=== PATIENT | female | born 1945 | race Caucasian/White ===

== ENCOUNTER 2019-04-17 18:05 | Emergency (ER) | payer MEDICARE, OTHER, SELFPAY ==
[2019-04-17 18:44] VITALS: BP 167/84; PULSE 100; RESP 20; TEMP 37.5; O2SAT 99; BMI 30.2
[2019-04-17 19:33] LABS: Basophils % 0.3 %; Hematocrit 47.7 % (37.0-47.0); Hemoglobin 15.5 g/dL (11.5-15.3); Lymphocytes # 1.1 10^3/uL (0.8-4.8); Lymphocytes % 15.3 %; Mean Corpuscular HGB Conc 32.5 g/dL (30.0-36.0); Mean Corpuscular Volume 92.3 fL (81-99); Mean Platelet Volume 9.1 fL (7.4-10.4); Monocytes # 0.4 10^3/uL (0.2-0.9); Monocytes % 5.4 %; Neutrophils # 5.7 10^3/uL (1.8-7.7); Neutrophils % 78.6 %; Nucleated Red Blood Cells % 0 %; Platelet Count 328 10^3/cmm (130-400); Red Blood Count 5.17 10^6/uL (4.1-5.3); Red Cell Distribution Width 12.9 % (12.1-15.1); White Blood Count 7.2 10^3/uL (4.0-10.0)
[2019-04-17 19:48] LABS: Alanine Aminotransferase 84 U/L (0-33); Albumin Level 4.7 g/dL (3.5-5.2); Alkaline Phosphatase 132 IU/L (35-105); Aspartate Amino Transferase 37 U/L (0-32); Blood Urea Nitrogen 19 mg/dL (8-23); Calcium 9.9 mg/dL (8.5-10.5); Carbon Dioxide 25 mmol/L (22-29); Chloride 98 mmol/L (98-107); Globulin 3.1 g/dL (1.3-4.6); Glucose 147 mg/dL (65-115); Lipase 18 U/L (13-60); Sodium 137 mmol/L (136-145); Total Bilirubin 0.3 mg/dL (0.15-1.2); Total Protein 7.8 g/dL (6.6-8.7)
--- NOTE | 2019-04-17 20:24 | ECG_ITS ---
Measurements Intervals Floyd Rate: 82 P: 46 OR: 244 QRS: 61 QRSD: 84 T: 73 QT: 362 QTc: 423 SINUS RHYTHM WITH FIRST DEGREE AV BLOCK NONSPECIFIC T-WAVE ABNORMALITY No previous ECG available for comparison Electronically Signed On 04-18-2019 13:21:40 COAL GETTER by Kathy Cadena M.D. [email or web address]
--- NOTE | 2019-04-17 20:31 | ED_ITS ---
HPI - General Adult General: Chief complaint: General Medical Stated complaint: Nausea, Vomiting, Migraine, Dizzy Time Seen by Provider: 04/17/19 20:23 History of Present Illness: HPI narrative: Patient comes in today with 3-day history of body aches and malaise. Patient reports for the last 24 hours she started vomiting and becoming significantly dizzy. Patient is unable to move without vomiting. Patient appears unwell. Patient appears in no pain. Patient reported that she had some low back and sciatic type pain prior to the symptoms occurring also. Patient takes thyroid medication and medication for cholesterol. Patient does have a history of 1 cardiac stent placement. Associated symptoms: Reports headache(s), nausea and vomiting Review of Systems General: Reports: 10 or more systems reviewed and unremarkable except in HPI and below GI: Reports: abdominal pain, nausea and vomiting Neuro: Reports: headache and dizziness PFSH ED PFSH: Social History Smoking and tobacco status: never smoked Physical Exam Const: COMMON NORMALS: no apparent distress and oriented x3 GENERAL APPEARANCE: cooperative HENMT: COMMON NORMALS: normocephalic, external ears normal, EAC's normal, TM's normal bilaterally and external nose normal HEAD & SCALP: normal to inspection and normocephalic FACE & SINUS: normal facial exam NOSE: external nose normal GENERAL EAR: hearing not grossly impaired EXTERNAL EAR: Yes external ears normal EXTERNAL AUDITORY CANAL: EAC's normal TYMPANIC MEMBRANE: TM's normal bilaterally MOUTH: oral and palatal mucosa normal THROAT: posterior oropharynx normal Eye: COMMON NORMALS: PERRL and EOMs intact bilaterally PUPIL: Yes PERRL Neck/C-Spine: COMMON NORMALS: full ROM and no lymphadenopathy Lymph: LYMPHATIC: no lymphedema noted Chest: COMMONS NORMALS: inspection of chest normal and palpation of chest normal Resp: COMMON NORMALS: normal respiratory effort and clear to auscultation bilaterally AUSCULTATION: clear to auscultation bilaterally Cardio: COMMON NORMALS: regular rate and regular rhythm RATE: regular rate RHYTHM: regular rhythm GI: COMMON NORMALS: normal to inspection, nondistended, normoactive bowel sounds and soft to palpation AUSCULTATION: Yes normoactive bowel sounds PALPATION: Yes soft and Yes tender (right abd) : COMMON NORMALS: Yes no CVA tenderness BLADDER/KIDNEY EXAM: Yes no CVA tenderness Back/Pelvis: COMMON NORMALS: no CVA tenderness and thoracic and lumbar spine normal to inspection Extremity: COMMON NORMALS: normal to inspection GENERAL: No edema Neuro: COMMON NORMALS: oriented x3, moves all extremities and no focal motor deficits Psych: COMMON NORMALS: mental status grossly normal and cooperative Skin: COMMON NORMALS: no rashes or lesions noted GENERAL SKIN EXAM: no rashes or lesions noted Course Vital Signs: Vital signs: Vital Signs Temperature 99.5 F 04/17/19 18:44 Pulse Rate 98 04/17/19 22:50 Respiratory Rate 20 H 04/17/19 18:44 Blood Pressure 134/71 04/17/19 22:50 Pulse Oximetry 99 04/17/19 18:44 MDM - General Adult MDM Narrative: Medical decision making narrative: Patient comes in today with complaints of headache, nausea and vomiting for the last 24 hours. Patient also reported some malaise for the last 3 days. Exam notes abdomen is soft with some mild tenderness in the epigastric region. Bowel sounds are hyperactive. Skin is warm and dry color is pink. Differential diagnosis includes gastroenteritis, gastritis, pneumonia, influenza, cholecystitis, dehydration, migraine headache, intracranial bleeding, ACS. Troponin was negative. CT of the head was normal. Laboratory values noted some mild elevation in hemoglobin hematocrit and mild elevation in AST, ALT, and alkaline phosphatase. CT of the abdomen showed no acute problem. Feel the patient probably has gastroenteritis with some mild dehydration. Patient was given 1500 mL of fluid in the ER along with Zofran, Reglan, Benadryl, and ketorolac for symptoms. Patient had improvement overall significantly. Patient was able to move without nausea and vomiting. Lab Data: Labs: Lab Results 04/17/19 04/17/19 04/17/19 Range/Units 19:21 19:21 19:21 WBC 7.2 (4.0-10.0) 10^3/ uL RBC 5.17 (4.1-5.3) 10^6/u L Hgb 15.5 H (11.5-15.3) g/dL Hct 47.7 H (37.0-47.0) % MCV 92.3 (81-99) fL MCH 30.0 (28.0-34.0) pg MCHC 32.5 (30.0-36.0) g/dL RDW 12.9 (12.1-15.1) % Plt Count 328 (130-400) 10^3/c mm MPV 9.1 (7.4-10.4) fL Neut % (Auto) 78.6 % Lymph % (Auto) 15.3 % [place] % (Auto) 5.4 % Eos % (Auto) 0.0 % Baso % (Auto) 0.3 % Neut # (Auto) 5.7 (1.8-7.7) 10^3/u L Lymph # (Auto) 1.1 (0.8-4.8) 10^3/u L [place] # (Auto) 0.4 (0.2-0.9) 10^3/u L Eos # (Auto) 0.0 (0.0-0.8) 10^3/u L Baso # (Auto) 0.0 (0.0-0.1) 10^3/u L Nucleated RBC % (a uto) 0 % Nucleated RBCs # 0.0 /100WBC Sodium 137 (136-145) mmol/L Potassium 4.0 (3.5-5.1) mmol/L Chloride 98 (98-107) mmol/L Carbon Dioxide 25 (22-29) mmol/L Anion Gap 18.0 (5-19) BUN 19 (8-23) mg/dL Creatinine 0.8 (0.5-0.9) mg/dL Glucose 147 H (65-115) mg/dL Lactic Acid (0.5-2.2) mmol/L Calcium 9.9 (8.5-10.5) mg/dL Total Bilirubin 0.3 (0.15-1.2) mg/dL AST 37 H (0-32) U/L ALT 84 H (0-33) U/L Alkaline Phosphata se 132 H (35-105) IU/L Troponin T Baselin e 6 (0-10) ng/mL Total Protein 7.8 (6.6-8.7) g/dL Albumin 4.7 (3.5-5.2) g/dL Globulin 3.1 (1.3-4.6) g/dL Lipase 18 (13-60) U/L Urine Color (Yellow) Urine Appearance (CLEAR) Urine pH (5-7) Ur Specific Gravit y (1.005-1.030) Urine Protein (Negative) Urine Glucose (UA) (Normal) Urine Ketones (Negative) Urine Blood (Negative) Urine Nitrate (Negative) Urine Bilirubin (NEGATIVE) Urine Urobilinogen (Negative) mg/dL Ur Leukocyte Joanie ase (Negative) Urine RBC (0-2) /hpf Urine WBC (0-5) /hpf Ur Squamous Epith Cells (0-5) Urine Bacteria (NONE) Urine Mucus 04/17/19 04/17/19 Range/Units 19:21 21:46 WBC (4.0-10.0) 10^3/ uL RBC (4.1-5.3) 10^6/u L Hgb (11.5-15.3) g/dL Hct (37.0-47.0) % MCV (81-99) fL MCH (28.0-34.0) pg MCHC (30.0-36.0) g/dL RDW (12.1-15.1) % Plt Count (130-400) 10^3/c mm MPV (7.4-10.4) fL Neut % (Auto) % Lymph % (Auto) % [place] % (Auto) % Eos % (Auto) % Baso % (Auto) % Neut # (Auto) (1.8-7.7) 10^3/u L Lymph # (Auto) (0.8-4.8) 10^3/u L [place] # (Auto) (0.2-0.9) 10^3/u L Eos # (Auto) (0.0-0.8) 10^3/u L Baso # (Auto) (0.0-0.1) 10^3/u L Nucleated RBC % (a uto) % Nucleated RBCs # /100WBC Sodium (136-145) mmol/L Potassium (3.5-5.1) mmol/L Chloride (98-107) mmol/L Carbon Dioxide (22-29) mmol/L Anion Gap (5-19) BUN (8-23) mg/dL Creatinine (0.5-0.9) mg/dL Glucose (65-115) mg/dL Lactic Acid 0.2 L (0.5-2.2) mmol/L Calcium (8.5-10.5) mg/dL Total Bilirubin (0.15-1.2) mg/dL AST (0-32) U/L ALT (0-33) U/L Alkaline Phosphata se (35-105) IU/L Troponin T Baselin e (0-10) ng/mL Total Protein (6.6-8.7) g/dL Albumin (3.5-5.2) g/dL Globulin (1.3-4.6) g/dL Lipase (13-60) U/L Urine Color Yellow (Yellow) Urine Appearance Hazy A (CLEAR) Urine pH 6 (5-7) Ur Specific Gravit y 1.020 (1.005-1.030) Urine Protein Neg (Negative) Urine Glucose (UA) Norm (Normal) Urine Ketones 1+ H (Negative) Urine Blood 3+ H (Negative) Urine Nitrate Negative (Negative) Urine Bilirubin Neg (NEGATIVE) Urine Urobilinogen Norm (Negative) mg/dL Ur Leukocyte Joanie ase Negative (Negative) Urine RBC 80-100 H (0-2) /hpf Urine WBC None (0-5) /hpf Ur Squamous Epith Cells 5-10 H (0-5) Urine Bacteria 1+ H (NONE) Urine Mucus 1+ Discharge Plan Discharge Patient Disposition: Home, Self-Care Clinical Impression: Gastroenteritis Condition: Stable Prescriptions: New meclizine 25 mg tablet 25 mg PO TID PRN (Reason: dizziness, nausea/vomiting) Qty: 14 RF: 0 ondansetron 4 mg tablet,disintegrating 4 mg PO Q8H PRN (Reason: nausea and vomiting) Qty: 10 RF: 0 Discharge Orders: Discharge Order (Routine); Ordered 04/17/19 Ordered By: Joe Herzog Referrals: Lauern Carrasco MD [Primary Care Provider] - Patient Instructions: Gastroenteritis (ED) Activity Restrictions/Additional Instructions: Drink plenty of fluids Clear liquids for 24 hours, then increase slowly to a bland diet Continue to normal diet slowly Follow-up with primary care in three days Return to ER for worsening symptoms, or blood in stool or vomit Coding Level of Care Code ED Wood Veneer Taper for Chg Fwd Exam Comprehensive
--- NOTE | 2019-04-17 20:31 | CTR_ITS ---
PROCEDURE INFORMATION: Exam: CT Abdomen And Pelvis With Contrast Exam date and time: 04/17/2019 9:35 PM Age: 73 years old Clinical indication: Nausea and vomiting; Prior surgery; Surgery date: 6+ months; Surgery type: Colon resection; Additional info: N/v abd pain TECHNIQUE: Imaging protocol: Computed tomography of the abdomen and pelvis with intravenous contrast. Total DLP: 1015.7 mGy-cm Radiation optimization: All CT scans at this facility use at least one of these dose optimization techniques: automated exposure control; mA and/or kV adjustment per patient size (includes targeted exams where dose is matched to clinical indication); or iterative reconstruction. Contrast material: OMNI 300; Contrast volume: 95 ml; Contrast route: IV; COMPARISON: [place]dom[place] o [id number] 01/29/2015 3:[address] Abdomen/Pelvis [facility] [address] 04/07/2011 9:35:21 AM FINDINGS: Pleural space: There is calcified granuloma in the left lower lobe and there is some calcified pleural plaques which do not appear to be grossly changed compared with 01/29/2015. Liver: Liver shows diffusely decreased density in keeping with fatty change. There is no focal abnormality within the liver. Gallbladder and bile ducts: The gallbladder is normal. Pancreas: The pancreas is normal. Spleen: The spleen is normal. Adrenals: The adrenal glands are normal. Kidneys and ureters: There is a 2 cm sized benign-appearing simple cyst in the mid left kidney which is slightly larger than on 01/29/2015 when it measured 18 mm. Tiny cyst in the upper pole right kidney is not significantly changed. There is no evidence of hydronephrosis. There is no evidence of renal or ureteral calcifications. Stomach and bowel: There is no evidence of colitis/diverticulitis. There is no evidence of intestinal obstruction. Appendix: Not identifiedThere is no evidence of colitis/diverticulitis. Intraperitoneal space: Unremarkable. No free air. No significant fluid collection. Vasculature: Unremarkable. No abdominal aortic aneurysm. Lymph nodes: There are some calcified left periesophageal lymph nodes in keeping with old granulomatous disease. Bladder: Unremarkable as visualized. Reproductive: Unremarkable as visualized. Bones/joints: The lumbar spine demonstrates mild degenerative changes at multiple levels. Soft tissues: Unremarkable. Other findings: There is no evidence of focal fluid collections to suggest abscess formation. CT/CT abdomen pelvis w con* [id number] IMPRESSION: No acute findings and no significant change from 01/29/2015 COMMENTS: Consistent with the [employer]'s Incidental Findings Committee white paper (J Am Emmett Radiol 2018): Any incidental cystic renal lesion classified in this report as too small to characterize or simple appearing is likely a benign cyst. No follow-up imaging is recommended for these lesions per consensus recommendations based on imaging criteria. Radiation Dose CTDIVOL = (mGy): DLP = 1015.7 (mGy-cm)
--- NOTE | 2019-04-17 20:34 | CTR_ITS ---
PROCEDURE INFORMATION: Exam: CT Head Without Contrast Exam date and time: 04/17/2019 9:35 PM Age: 73 years old Clinical indication: Pain; Headache not specified; Additional info: Dizzyness, headache TECHNIQUE: Imaging protocol: Computed tomography of the head without contrast. Total DLP: 780.66 mGy-cm Radiation optimization: All CT scans at this facility use at least one of these dose optimization techniques: automated exposure control; mA and/or kV adjustment per patient size (includes targeted exams where dose is matched to clinical indication); or iterative reconstruction. COMPARISON: No relevant prior studies available. FINDINGS: Brain: Normal. No hemorrhage. Unremarkable white matter. No mass effect. Midline shift: There is no shift of midline structures. Ventricles: Normal. No ventriculomegaly. Bones/joints: Unremarkable. No acute fracture. Sinuses: Visualized sinuses are unremarkable. No fluid levels. Mastoid air cells: Visualized mastoid air cells are well aerated. Soft tissues: Unremarkable. CT/CT head wo con* [id number] IMPRESSION: No acute intracranial abnormality. Radiation Dose CTDIVOL = (mGy): DLP = 780.66 (mGy-cm)
[2019-04-17 20:59] LABS: Lactic Sepsis W/Reflex 0.2 mmol/L (0.5-2.2)
[2019-04-17 21:01] LABS: Troponin(5th) Baseline 6 ng/mL (0-10)
[2019-04-17] MEDS: metoclopramide 5 mg/mL SDV 2 mL 10 MG IVP (21:25)
[2019-04-17] MEDS: sodium chloride 0.9% 1,000 ML 999 ML IV (21:25)
[2019-04-17] MEDS: diphenhydrAMINE 50 mg/mL SDV 1mL 25 MG IVP (21:25)
[2019-04-17] MEDS: ketorolac 30 mg/mL INJ 15 MG IVP (21:27)
[2019-04-17] MEDS: iohexol 300 mg/mL 100 mL Btl IV (21:37)
[2019-04-17 22:45] VITALS: BP 122/57; PULSE 84
[2019-04-17 22:47] VITALS: BP 137/76; PULSE 88
[2019-04-17 22:50] VITALS: BP 134/71; PULSE 98
[2019-04-17] MEDS: sodium chloride 0.9% 500 ML IV (23:13)
[2019-04-17] MEDS: ondansetron 2 mg/ML SDV 2 mL 4 MG IVP (23:13)
[2019-04-17 23:33] LABS: Add Urine Microscopic? YES; Bilirubin Urine Neg (NEGATIVE); Blood Urine 3+ (Negative); Glucose Urine UA Norm (Normal); Ketones Urine 1+ (Negative); Leukocyte Esterase Urine Negative (Negative); Nitrate Urine Negative (Negative); Protein Urine Neg (Negative); Urine Appearance Hazy (CLEAR); Urine Color Yellow (Yellow); Urobilinogen Urine Norm (Negative); pH Urine 6 (5-7)
[2019-04-17 23:35] LABS: Add Urine Culture? Yes; Bacteria Urine 1+; Mucus Urine 1+; RBC Urine 80-100 /hpf (0-2)
[2019-04-18] MEDS: ondansetron 4 MG Tablet PO (00:13)
== END 2019-04-18 00:25 | disposition home or self-care (01) ==
PROVIDERS: Emergency Medicine; Emergency Provider Nurse Practitioner Family; Family Provider Family Medicine; PCP Family Medicine
DX: K52.9 Noninfective gastroenteritis and colitis, unspecified (principal)
CPT/HCPCS: 36415; 70450; 74177; 80053; 81001; 83605; 83690; 84484; 85025; 87086; 93005; 96361; 96374; 96375; 96376; 99283; 99284; J1200; J1885; J2405; J2765; J7030; J7040; Q0162; Q9967

== ENCOUNTER 2019-04-21 17:49 | Emergency (ER) | payer MEDICARE, OTHER, SELFPAY ==
[2019-04-21 17:55] VITALS: BP 163/84; PULSE 101; RESP 20; TEMP 37.4; O2SAT 98; BMI 29.6
--- NOTE | 2019-04-21 18:14 | ED_ITS ---
Entered by Pilar Can, acting as scribe for CanJuanito DO Emiliano Apr 21, 2019 17:49 HPI - General Adult General: Chief complaint: General Medical Stated complaint: headache, back pain Time Seen by Provider: 04/21/19 18:14 Source: patient and RN notes reviewed Mode of arrival: ambulatory Limitations: no limitations History of Present Illness: HPI narrative: 73 yo female presents to ED with complaints of a headache that she has had for about a week. She was here on 04.17.2019 for the same problem. She states she is dizzy, her back and legs hurt. She said when it first started she couldn't move without throwing up. She said she is able to keep from vomiting. She said it feels like her nerves are bad on her head. She said she is able to see fine and her neck is slightly stiff. Her pain comes in waves and is located on the L side of her head. Her temperature is slightly elevated at 99.4. She said her scalp is very tender on her L episcopal and slightly tender on her R episcopal. She said she had diarrhea for almost a week and is now diarrhea free. It hurts her back to raise her legs. Her PCP is Lauren Agustin MD complaint: headache Onset (ago): week(s) (1) Location: head Radiation: back and extremity (lower) Severity: severe Quality: stabbing and aching Pain Consistency: constant Relieving factors: none Exacerbating factors: none Associated symptoms: Reports headache(s), nausea and vomiting; Deny chest pain, confusion, dyspnea, palpitations or syncope Treatments prior to arrival: none Review of Systems Const: Reports: fever and body aches; Denies: chills Eyes: Denies: change in vision, blurry vision or blind spots ENMT: Denies: throat pain or ear pain Card: Denies: chest pain, palpitations, edema or syncope Resp: Denies: shortness of breath or productive cough GI: Reports: nausea and vomiting : Denies: flank pain Neuro: Reports: headache, dizziness and vertigo; Denies: numbness in extremities, weakness in extremities, changes in sensation, confusion, behavioral changes or slurred speech PFS ED PFSH: Social History Smoking and tobacco status: never smoked Physical Exam Const: GENERAL APPEARANCE: well developed ORIENTATION/CONSCIOUSNESS: Yes oriented to person, Yes oriented to place and Yes oriented to time HENMT: COMMON NORMALS: normocephalic, external ears normal and external nose normal HEAD & SCALP: normocephalic, scalp tenderness and temporal artery tenderness left NOSE: external nose normal and no nasal discharge EXTERNAL EAR: Yes external ears normal MOUTH: tongue normal TEETH & GINGIVA: no abnormal tooth and associated gingiva THROAT: posterior oropharynx normal; no peritonsillar mass Eye: COMMON NORMALS: PERRL, EOMs intact bilaterally and conjunctivae normal EYELID: eyelids normal CONJUNCTIVA: Yes conjunctivae normal PUPIL: Yes PERRL Neck/C-Spine: GENERAL: No tracheal deviation CERVICAL SPINE: Yes cervical spine tenderness Chest: COMMONS NORMALS: inspection of chest normal CHEST: No tenderness Resp: COMMON NORMALS: clear to auscultation bilaterally EFFORT & INSPECTION: No tachypneic, No respiratory distress, No retractions, No uses accessory muscles and No tracheal deviation AUSCULTATION: clear to auscultation bilaterally, no rhonchi, no wheezes and lung sounds not diminished Cardio: COMMON NORMALS: regular rate and regular rhythm RATE: regular rate RHYTHM: regular rhythm HEART SOUNDS: no murmurs PERIPHERAL PULSES: radial pulses present GI: INSPECTION: No abdominal distension AUSCULTATION: No hyperactive bowel sounds and No hypoactive bowel sounds PALPATION: No guarding and No rigid PERCUSSION: no dullness to percussion and no tympanic to percussion Neuro: SENSORIUM/ORIENTATION: Yes oriented to person, Yes oriented to place and Yes oriented to time Psych: COMMON NORMALS: mental status grossly normal Skin: COMMON NORMALS: no rashes or lesions noted GENERAL SKIN EXAM: no rashes or lesions noted Course Vital Signs: Vital signs: Vital Signs Temperature 99.4 F 04/21/19 17:55 Pulse Rate 80 04/21/19 20:53 Respiratory Rate 16 04/21/19 20:14 Blood Pressure 145/81 04/21/19 20:53 Pulse Oximetry 96 04/21/19 20:53 MDM - General Adult MDM Narrative: Medical decision making narrative: 73-year-old female presents with severe headache, complaining of scalp pain. She has body aches, particular ly in her lower extremities, and backache. She has a low-grade temperature. She was seen 4 days ago for similar complaints. She notes that her vomiting has improved. Her dizziness is improved as well. Her white blood cell count is 8. Her electrolytes are normal. Her inflammatory markers are not elevated. This speaks against temporal arteritis. Her CT, a repeat, is still normal. Lumbar puncture to rule out encephalitis/meningitis was offered, and the patient declined. She will be treated for the headache with carbamazepine, as it seems to be a neuropathic type of pain, and pain medication. Close follow-up. The patient has a PCP appointment on Wednesday or Wednesday. Lab Data: Labs: Lab Results 04/21/19 04/21/19 04/21/19 Range/Units 18:50 18:50 18:50 WBC 8.0 (4.0-10.0) 10^3/ uL RBC 4.85 (4.1-5.3) 10^6/u L Hgb 14.1 (11.5-15.3) g/dL Hct 44.0 (37.0-47.0) % MCV 90.7 (81-99) fL MCH 29.1 (28.0-34.0) pg MCHC 32.0 (30.0-36.0) g/dL RDW 13.1 (12.1-15.1) % Plt Count 292 (130-400) 10^3/c mm MPV 9.2 (7.4-10.4) fL Neut % (Auto) 73.2 % Lymph % (Auto) 17.7 % [place] % (Auto) 7.7 % Eos % (Auto) 1.0 % Baso % (Auto) 0.2 % Neut # (Auto) 5.9 (1.8-7.7) 10^3/u L Lymph # (Auto) 1.4 (0.8-4.8) 10^3/u L [place] # (Auto) 0.6 (0.2-0.9) 10^3/u L Eos # (Auto) 0.1 (0.0-0.8) 10^3/u L Baso # (Auto) 0.0 (0.0-0.1) 10^3/u L Nucleated RBC % (a uto) 0 % Nucleated RBCs # 0.0 /100WBC ESR 18 H (0-15) mm/hr Sodium 140 (136-145) mmol/L Potassium 3.9 (3.5-5.1) mmol/L Chloride 100 (98-107) mmol/L Carbon Dioxide 28 (22-29) mmol/L Anion Gap 15.9 (5-19) BUN 14 (8-23) mg/dL Creatinine 1.0 H (0.5-0.9) mg/dL Glucose 125 H (65-115) mg/dL Lactate (0.5-2.2) mmol/L Calcium 9.5 (8.5-10.5) mg/dL Magnesium 2.3 (1.7-2.3) mg/dL Total Bilirubin 0.2 (0.15-1.2) mg/dL AST 29 (0-32) U/L ALT 54 H (0-33) U/L Alkaline Phosphata se 101 (35-105) IU/L Creatine Kinase 71 (26-192) U/L C-Reactive Protein 1.5 (0.0-4.9) mg/L Total Protein 7.3 (6.6-8.7) g/dL Albumin 4.0 (3.5-5.2) g/dL Globulin 3.3 (1.3-4.6) g/dL Urine Color (Yellow) Urine Appearance (CLEAR) Urine pH (5-7) Ur Specific Gravit y (1.005-1.030) Urine Protein (Negative) Urine Glucose (UA) (Normal) Urine Ketones (Negative) Urine Blood (Negative) Urine Nitrate (Negative) Urine Bilirubin (NEGATIVE) Urine Urobilinogen (Negative) mg/dL Ur Leukocyte Joanie ase (Negative) Urine RBC (0-2) /hpf Urine WBC (0-5) /hpf Ur Squamous Epith Cells (0-5) Urine Bacteria (NONE) Urine Mucus 04/21/19 04/21/19 Range/Units 18:50 19:55 WBC (4.0-10.0) 10^3/ uL RBC (4.1-5.3) 10^6/u L Hgb (11.5-15.3) g/dL Hct (37.0-47.0) % MCV (81-99) fL MCH (28.0-34.0) pg MCHC (30.0-36.0) g/dL RDW (12.1-15.1) % Plt Count (130-400) 10^3/c mm MPV (7.4-10.4) fL Neut % (Auto) % Lymph % (Auto) % [place] % (Auto) % Eos % (Auto) % Baso % (Auto) % Neut # (Auto) (1.8-7.7) 10^3/u L Lymph # (Auto) (0.8-4.8) 10^3/u L [place] # (Auto) (0.2-0.9) 10^3/u L Eos # (Auto) (0.0-0.8) 10^3/u L Baso # (Auto) (0.0-0.1) 10^3/u L Nucleated RBC % (a uto) % Nucleated RBCs # /100WBC ESR (0-15) mm/hr Sodium (136-145) mmol/L Potassium (3.5-5.1) mmol/L Chloride (98-107) mmol/L Carbon Dioxide (22-29) mmol/L Anion Gap (5-19) BUN (8-23) mg/dL Creatinine (0.5-0.9) mg/dL Glucose (65-115) mg/dL Lactate 0.7 (0.5-2.2) mmol/L Calcium (8.5-10.5) mg/dL Magnesium (1.7-2.3) mg/dL Total Bilirubin (0.15-1.2) mg/dL AST (0-32) U/L ALT (0-33) U/L Alkaline Phosphata se (35-105) IU/L Creatine Kinase (26-192) U/L C-Reactive Protein (0.0-4.9) mg/L Total Protein (6.6-8.7) g/dL Albumin (3.5-5.2) g/dL Globulin (1.3-4.6) g/dL Urine Color Yellow (Yellow) Urine Appearance Clear (CLEAR) Urine pH 7 (5-7) Ur Specific Gravit y 1.010 (1.005-1.030) Urine Protein Neg (Negative) Urine Glucose (UA) Norm (Normal) Urine Ketones Negative (Negative) Urine Blood 3+ H (Negative) Urine Nitrate Negative (Negative) Urine Bilirubin Neg (NEGATIVE) Urine Urobilinogen Norm (Negative) mg/dL Ur Leukocyte Joanie ase Negative (Negative) Urine RBC 5-10 H (0-2) /hpf Urine WBC None (0-5) /hpf Ur Squamous Epith Cells 0-4 H (0-5) Urine Bacteria Trace (NONE) Urine Mucus Trace Imaging Data^: CT Head: Radiologist's impression: [address] [place] [address] CT Scan Report Signed Patient: Maira Poe #: [id number] : 5Acct#:[id number] Age/Sex: 73 / FADM Date: 04/21/19 Loc: ERRoom/Bed: Attending Dr: Ordering Provider/Ordering MD: Juanito North DO Date of Service: 04/21/19 Procedure(s): CT head wo con* [id number] Accession Number(s): [id number] Report Number: [id number] PROCEDURE INFORMATION: Exam: CT Head Without Contrast Exam date and time: 04/21/2019 7:33 PM Age: 73 years old Clinical indication: Headache not specified; Patient HX: C/O CURRY, back pain w n/v x 1 week TECHNIQUE: Imaging protocol: Computed tomography of the head without contrast. Total DLP: 756.2 mGy-cm Radiation optimization: All CT scans at this facility use at least one of these dose optimization techniques: automated exposure control; mA and/or kV adjustment per patient size (includes targeted exams where dose is matched to clinical indication); or iterative reconstruction. COMPARISON: CT head wo con* [id number] 04/17/2019 9:43 PM FINDINGS: Brain: Unremarkable for age. No hemorrhage. Unremarkable white matter. No mass effect. Ventricles: Unremarkable for age. No ventriculomegaly. Bones/joints: Unremarkable. No acute fracture. Sinuses: Visualized sinuses are unremarkable. No fluid levels. Mastoid air cells: Visualized mastoid air cells are well aerated. Soft tissues: Unremarkable. CT/CT head wo con* [id number] IMPRESSION: No acute intracranial abnormality. Radiation Dose CTDIVOL = (mGy): DLP = 756.2 (mGy-cm) Dictated By:Christophe Fatima Signed By:Tessy Fatima Date/Time:04/21/192006 DD/ Discharge Plan Discharge Condition: Stable Prescriptions: No Action meclizine 25 mg tablet 25 mg PO TID PRN (Reason: dizziness, nausea/vomiting) Qty: 14 RF: 0 ondansetron 4 mg tablet,disintegrating 4 mg PO Q8H PRN (Reason: nausea and vomiting) Qty: 10 RF: 0 atorvastatin 20 mg tablet 20 mg PO DAILY RF: 0 aspirin 81 mg tablet,delayed release (DR/EC) 81 mg PO DAILY RF: 0 tramadol 50 mg Tablet 50 mg PO BID PRN (Reason: Pain) RF: 0 levothyroxine 112 mcg tablet 112 mcg PO DAILY RF: 0 cyclobenzaprine 5 mg tablet 5 mg PO PRN PRN (Reason: MUSCLE SPASMS) RF: 0 Restasis 0.05 % Dropperette 1 drp OPHTHALMIC (EYE) Q12H RF: 0 Referrals: Lauren Carrasco MD [Primary Care Provider] - Coding Level of Care Code ED Mooner for Chg Fwd Exam Comprehensive The documentation recorded by the Juan José heart Valerie R, accurately reflects the service I personally performed and the decisions made by Can abrams Jeremy John, DO Apr 21, 2019 17:49
--- NOTE | 2019-04-21 18:30 | PC.PHAR ---
PT STATES THAT SHE IS CURRENTLY ON AN ANTIBIOTIC FOR A BLADDER INFECTION. SHE KNOWS NEITHER THE STRENGTH NOR THE NAME OF IT. HER PHARMACY, [email or web address] IN [place], IS CLOSED, SO I WAS UNABLE TO OBTAIN INFORMATION FROM THEM.
--- NOTE | 2019-04-21 18:40 | CTR_ITS ---
PROCEDURE INFORMATION: Exam: CT Head Without Contrast Exam date and time: 04/21/2019 7:33 PM Age: 73 years old Clinical indication: Headache not specified; Patient HX: C/O CURRY, back pain w n/v x 1 week TECHNIQUE: Imaging protocol: Computed tomography of the head without contrast. Total DLP: 756.2 mGy-cm Radiation optimization: All CT scans at this facility use at least one of these dose optimization techniques: automated exposure control; mA and/or kV adjustment per patient size (includes targeted exams where dose is matched to clinical indication); or iterative reconstruction. COMPARISON: CT head wo con* [id number] 04/17/2019 9:43 PM FINDINGS: Brain: Unremarkable for age. No hemorrhage. Unremarkable white matter. No mass effect. Ventricles: Unremarkable for age. No ventriculomegaly. Bones/joints: Unremarkable. No acute fracture. Sinuses: Visualized sinuses are unremarkable. No fluid levels. Mastoid air cells: Visualized mastoid air cells are well aerated. Soft tissues: Unremarkable. CT/CT head wo con* [id number] IMPRESSION: No acute intracranial abnormality. Radiation Dose CTDIVOL = (mGy): DLP = 756.2 (mGy-cm)
[2019-04-21 18:43] VITALS: O2SAT 98
[2019-04-21] MEDS: valproic acid inj 500 MG in sodium chloride 0.9% 50 ML 30 MG IV (19:00)
[2019-04-21] MEDS: sodium chloride 0.9% 1,000 ML 999 ML IV (19:00)
[2019-04-21 19:01] LABS: Basophils % 0.2 %; Eosinophils # 0.1 10^3/uL (0.0-0.8); Hemoglobin 14.1 g/dL (11.5-15.3); Lymphocytes # 1.4 10^3/uL (0.8-4.8); Lymphocytes % 17.7 %; Mean Corpuscular Hemoglobin 29.1 pg (28.0-34.0); Mean Corpuscular Volume 90.7 fL (81-99); Mean Platelet Volume 9.2 fL (7.4-10.4); Monocytes # 0.6 10^3/uL (0.2-0.9); Monocytes % 7.7 %; Neutrophils # 5.9 10^3/uL (1.8-7.7); Neutrophils % 73.2 %; Nucleated Red Blood Cells % 0 %; Platelet Count 292 10^3/cmm (130-400); Red Blood Count 4.85 10^6/uL (4.1-5.3); Red Cell Distribution Width 13.1 % (12.1-15.1)
[2019-04-21] MEDS: morphine 4 mg/mL SDV 1 mL IVP ×2 (19:01→20:38)
[2019-04-21] MEDS: ondansetron 2 mg/ML SDV 2 mL 4 MG IVP (19:01)
[2019-04-21] MEDS: ketorolac 30 mg/mL INJ IVP (19:01)
[2019-04-21 19:11] LABS: Lactate (Lactic Acid level) 0.7 mmol/L (0.5-2.2)
[2019-04-21 19:16] LABS: Alanine Aminotransferase 54 U/L (0-33); Alkaline Phosphatase 101 IU/L (35-105); Anion Gap 15.9 (5-19); Aspartate Amino Transferase 29 U/L (0-32); Blood Urea Nitrogen 14 mg/dL (8-23); C Reactive Protein 1.5 mg/L (0.0-4.9); Calcium 9.5 mg/dL (8.5-10.5); Carbon Dioxide 28 mmol/L (22-29); Chloride 100 mmol/L (98-107); Creatine Phosphokinase 71 U/L (26-192); Globulin 3.3 g/dL (1.3-4.6); Glucose 125 mg/dL (65-115); Magnesium 2.3 mg/dL (1.7-2.3); Potassium 3.9 mmol/L (3.5-5.1); Sodium 140 mmol/L (136-145); Total Bilirubin 0.2 mg/dL (0.15-1.2); Total Protein 7.3 g/dL (6.6-8.7)
[2019-04-21 19:47] LABS: Erythrocyte Sedimentation Rate 18 mm/hr (0-15)
[2019-04-21 19:57] VITALS: BP 152/77; PULSE 78; O2SAT 96
[2019-04-21 20:14] VITALS: BP 154/84; PULSE 81; RESP 16; O2SAT 96
[2019-04-21 20:35] LABS: Add Urine Culture? No; Add Urine Microscopic? YES; Bacteria Urine TRACE; Bilirubin Urine Neg (NEGATIVE); Blood Urine 3+ (Negative); Glucose Urine UA Norm (Normal); Ketones Urine Negative (Negative); Leukocyte Esterase Urine Negative (Negative); Mucus Urine TRACE; Nitrate Urine Negative (Negative); Protein Urine Neg (Negative); Squamous Epithelial Cell Urine 0-4 (0-5); Urine Appearance Clear (CLEAR); Urine Color Yellow (Yellow); Urobilinogen Urine Norm (Negative); pH Urine 7 (5-7)
[2019-04-21 20:53] VITALS: BP 145/81; PULSE 80; O2SAT 96
--- NOTE | 2019-04-21 21:17 | PC.NURSE ---
assisted pt to restroom. pt tolerated activity fair
[2019-04-21 21:37] VITALS: BP 143/74; PULSE 70; O2SAT 95
== END 2019-04-21 21:37 | disposition home or self-care (01) ==
PROVIDERS: Emergency Provider Emergency Medicine; Family Provider Family Medicine; PCP Family Medicine
DX: R51 Headache (principal); M54.9 Dorsalgia, unspecified
CPT/HCPCS: 12345; 70450; 80053; 81001; 82550; 83605; 83735; 85025; 85651; 86140; 96360; 96361; 96365; 96366; 96374; 96375; 96376; 99283; 99284; J1885; J2270; J2405; J2930; J7030

== ENCOUNTER 2019-05-10 13:24 | Outpatient (REF) | payer MEDICARE, OTHER, SELFPAY ==
[2019-05-10 13:34] LABS: Basophils # 0.1 10^3/uL (0.0-0.1); Basophils % 0.7 %; Eosinophils # 0.2 10^3/uL (0.0-0.8); Eosinophils % 2.1 %; Hematocrit 45.5 % (37.0-47.0); Hemoglobin 14.6 g/dL (11.5-15.3); Lymphocytes # 2.2 10^3/uL (0.8-4.8); Lymphocytes % 28.5 %; Mean Corpuscular HGB Conc 32.1 g/dL (30.0-36.0); Mean Corpuscular Hemoglobin 30.4 pg (28.0-34.0); Mean Corpuscular Volume 94.6 fL (81-99); Mean Platelet Volume 9.7 fL (7.4-10.4); Monocytes # 0.4 10^3/uL (0.2-0.9); Monocytes % 5.8 %; Neutrophils # 4.8 10^3/uL (1.8-7.7); Neutrophils % 62.8 %; Nucleated Red Blood Cells % 0 %; Platelet Count 337 10^3/cmm (130-400); Red Blood Count 4.81 10^6/uL (4.1-5.3); Red Cell Distribution Width 14.7 % (12.1-15.1); White Blood Count 7.6 10^3/uL (4.0-10.0)
[2019-05-10 14:06] LABS: Alanine Aminotransferase 32 U/L (0-33); Albumin Level 4.4 g/dL (3.5-5.2); Alkaline Phosphatase 117 IU/L (35-105); Anion Gap 18.4 (5-19); Aspartate Amino Transferase 20 U/L (0-32); Blood Urea Nitrogen 16 mg/dL (8-23); Calcium 9.8 mg/dL (8.5-10.5); Carbon Dioxide 24 mmol/L (22-29); Chloride 101 mmol/L (98-107); Glucose 140 mg/dL (65-115); Osmolality Calculated 287 mOsm/kg (285-295); Potassium 4.4 mmol/L (3.5-5.1); Sodium 139 mmol/L (136-145); Total Bilirubin 0.4 mg/dL (0.15-1.2); Total Protein 6.4 g/dL (6.6-8.7)
== END 2019-05-10 13:25 | disposition home or self-care (01) ==
LOC: LAB 13:24
PROVIDERS: Family Provider Family Medicine; PCP Family Medicine; Visit Provider Family Medicine
DX: Z01.89 Encounter for other specified special examinations (principal)
CPT/HCPCS: 80053; 85025

== ENCOUNTER → 2019-11-02 08:49 | Outpatient (BNVA) | payer MEDICARE, OTHER, SELFPAY | PROVIDERS: Family Provider Family Medicine; PCP Family Medicine; Visit Provider Nurse Practitioner Family | DX: N30.20 Other chronic cystitis without hematuria (principal) | CPT/HCPCS: 81001 ==

== ENCOUNTER 2019-12-22 09:06 | Outpatient (CLI) | payer MEDICARE, OTHER, SELFPAY ==
--- NOTE | 2019-12-22 09:13 | MM_ITS ---
WS: [id number] Bilateral screening digital mammogram, 12/22/2019 Clinical Data: SCREENING Comparison: 01/24/2015, 02/03/2010. Findings: The breast parenchymal pattern shows normal glandular tissue No spiculated masses or clustered calcif ications are seen. There are no secondary signs of carcinoma. There are lymph nodes in both axilla. MM/[place] [id number] Impression: 1. Negative bilateral mammogram unchanged. 2. Recommend annual screening mammograms. BIRADS: 1-Negative FOLLOW UP: 1 Year Follow-up The [employer] freight checker was used.
== END 2019-12-22 09:07 | disposition home or self-care (01) ==
LOC: RADSHAW 09:11
PROVIDERS: PCP Family Medicine; Visit Provider Family Medicine
DX: Z12.31 Encounter for screening mammogram for malignant neoplasm of breast (principal)
CPT/HCPCS: 77067

== ENCOUNTER 2020-10-20 08:26 | Observation (INO) | payer MEDICARE, OTHER, SELFPAY ==
[2020-10-20] VITALS (11 sets, daily range): BP systolic 106–144; BP diastolic 55–77; PULSE 69–85; RESP 14–18; TEMP 36.1–36.8; O2SAT 94–99; BMI 28.3
--- NOTE | 2020-10-20 08:39 | CTR_ITS ---
PROCEDURE INFORMATION: Exam: CT Head Without Contrast Exam date and time: 10/20/2020 8:39 AM Age: 75 years old Clinical indication: Pain; Headache not specified; Patient HX: History of encephalitis 1 year ago; Additional info: Worst headache of her life TECHNIQUE: Imaging protocol: Computed tomography of the head without contrast. Total images: 183 Radiation optimization: All CT scans at this facility use at least one of these dose optimization techniques: automated exposure control; mA and/or kV adjustment per patient size (includes targeted exams where dose is matched to clinical indication); or iterative reconstruction. COMPARISON: CT head wo con* [id number] 04/21/2019 7:53 PM RADIATION DOSE METRICS: Total DLP (mGy-cm): 748.31 FINDINGS: Brain: Senescent calcifications in the basal ganglia. Cerebral ventricles: No ventriculomegaly. Paranasal sinuses: Visualized sinuses are unremarkable. No fluid levels. Mastoid air cells: Visualized mastoid air cells are well aerated. Orbital cavity: Prior lens extraction. Bones/joints: Unremarkable. No acute fracture. Soft tissues: Unremarkable. CT/CT head wo con* [id number] IMPRESSION: No acute intracranial abnormality. Radiation Dose CTDIVOL = (mGy): DLP = 748.31 (mGy-cm)
--- NOTE | 2020-10-20 08:45 | W.ED.HA ---
Documented by User: ARTURO Mandujano 10/21/20 07:16 HPI - Headache General: Chief Complaint: ER Hold Stated Complaint: PAIN IN HEAD Time Seen by Provider: 10/20/20 08:38 History of Present Illness: HPI Narrative: Patient is a 75-year-old female comes to the ED with headache. Past medical history of hyperlipidemia and hypothyroidism. headache started 4 days ago. It has gotten worse over the last 2 days. She says the pain has episodes of sharp intensity. Pain rating 10 out of 10. Pain is located in the right occipital/right posterior temporal region. Patient says she has had migraines in the past and says this is unlike any of her past migraines. She reports some mild nausea, but no episodes of emesis. Denies any worsening factors. She does say putting some pressure on the right side of her head helps a little bit. 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 She is having some similar symptoms now and is concerned she is having another episode of meningitis/encephalitis. Patient states the doctor told her she is more susceptible to having reoccurring encephalitis and meningitis. Denies any worsening with loud noises or photophobia. Associated symptoms: Reports nausea; Deny chest pain, fever(s), rash or vomiting Review of Systems Const: Denies: fever(s), chills or fatigue Eyes: Denies: change in vision or eye discomfort ENMT: Denies: throat pain, odynophagia, nasal discharge or nasal congestion Card: Denies: chest pain, palpitations, edema, swelling of feet/ankles, dyspnea on exertion or orthopnea Resp: Denies: dyspnea, productive cough or non-productive cough GI: Reports: nausea; Denies: abdominal pain, vomiting, diarrhea, constipation or hematochezia : Denies: flank pain, dysuria or hematuria Musc: Denies: neck pain, back pain or extremity swelling Skin/Breast: Denies: rash or new lesions Neuro: Reports: headache(s); Denies: numbness in extremities or weakness in extremities PFS ED PFSH: Medical History (Updated 10/22/20 @ 07:53 by Nithin Fairchild MD) Chronic cystitis Family History Father , AT AGE 83 LUNG CANCER,BLADDER CANCER Cancer Mother , AT AGE 83 KIDNEY CANCER Cancer Social History Smoking and tobacco status: never smoked Alcohol intake: unknown Adopted: No Caregiver/support person: No Lives independently: No Household members: spouse Marital status: Current occupational status: retired Physical Exam Const: COMMON NORMALS: patient oriented x3, healthy appearing and alert GENERAL APPEARANCE: cooperative and in distress (Patient has episodes of hollering out in pain approx 2 times every min) HENMT: COMMON NORMALS: normocephalic HEAD & SCALP: normocephalic MOUTH: Normal oral and palatal mucosa present THROAT: posterior oropharynx normal and uvula midline Eye: COMMON NORMALS: Equal, round and reactive pupils present, EOMs intact bilaterally and conjunctivae normal CONJUNCTIVA: Yes conjunctivae normal PUPIL: Yes Equal, round and reactive pupils present Neck/C-Spine: COMMON NORMALS: supple and no meningeal signs GENERAL: Yes normal visual inspection Resp: COMMON NORMALS: normal respiratory effort, No retractions, No use of accessory muscles and clear to auscultation bilaterally AUSCULTATION: clear to auscultation bilaterally Cardio: COMMON NORMALS: regular rate, regular rhythm, S1 normal heart sound present, S2 normal heart sound present, No gallops present (Cardio), No clicks present (Cardio), No murmurs present (Cardio) and Peripheral pulses 2+ throughout RATE: regular rate RHYTHM: regular rhythm HEART SOUNDS: S1 normal heart sound present and S2 normal heart sound present PERIPHERAL PULSES: Peripheral pulses 2+ throughout GI: COMMON NORMALS: Normal to inspection, nondistended, normoactive bowel sounds present, Soft to palpation, non-tender and no masses PALPATION: Yes Soft to palpation : COMMON NORMALS: Yes no CVA tenderness BLADDER/KIDNEY EXAM: Yes no CVA tenderness Back/Pelvis: COMMON NORMALS: no CVA tenderness Extremity: COMMON NORMALS: normal to inspection Neuro: COMMON NORMALS: patient oriented x3, CN's II-XII intact bilaterally, moves all extremities, no focal motor deficits and no sensory deficits noted SENSORIUM/ORIENTATION: Yes alert MENINGEAL SIGNS: Yes no meningeal signs SENSORY EXAM: Yes extremities (intact) MOTOR EXAM: 5/5 motor strength present throughout Skin: GENERAL SKIN EXAM: dry skin Course Reevaluation(s): Reevaluation #1: I went in to reevaluate patient after she received IV meds. She said the right sided head pain has decreased some. She says it is now rated a 7 out of 10, which is an improvement from her 10 out of 10 pain rating previously. Time: 10:05 Reevaluation #2: Patient now rates her pain at a tolerable 3 out of 10 on the pain scale. I discussed with patient the recommendation of doing a spinal tap for further evaluation given her history of herpes simplex encephalitis. She agreed and would like to have the spinal tap done for further evaluation. Time: 10:27 Vital Signs: Vital signs: Vital Signs Temperature 98.3 F 10/20/20 22:07 Pulse Rate 72 10/20/20 22:07 Respiratory Rate 16 10/20/20 22:07 Blood Pressure 125/77 10/20/20 22:07 Pulse Oximetry 95 10/20/20 22:07 MDM - Headache MDM Narrative: Medical decision making narrative: Patient is a 75-year-old female comes to the ED with sharp head pains on right posterior temporal and right occipital region. 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 The symptoms she is having now are similar to her episode of encephalitis last year. Exam is benign and patient has no meningeal signs. CBC and CMP were unremarkable. CT head showed no acute findings. Patient's head pain improved but did not completely resolve after IV meds. I discussed with patient the recommendation for a lumbar puncture to check CSF. Patient consented and would like to have a lumbar puncture done. I spoke with Dr. Braswell about patient case and he agreed to do a lumbar puncture and thought patient should be put on observation while labs are pending. I assisted Dr. Braswell with lumbar puncture. I spoke with Dr. Lerner about pt and he agreed with admission and will follow CSF lab results. Lab Data: Attestation: I reviewed the patient's lab results. Labs: Lab Results 10/20/20 10/20/20 10/20/20 Range/Units 08:57 08:57 11:40 WBC 4.9 (4.0-10.0) 10^3/ uL RBC 4.83 (4.1-5.3) 10^6/u L Hgb 14.4 (11.5-15.3) g/dL Hct 44.4 (37.0-47.0) % MCV 91.9 (81-99) fl MCH 29.8 (28.0-34.0) pg MCHC 32.4 (30.0-36.0) g/dL RDW 13.1 (12.1-15.1) % Plt Count 216 (130-400) 10^3/c mm MPV 9.2 (7.4-10.4) fL Neut % (Auto) 61.7 % Lymph % (Auto) 28.0 % Brantley % (Auto) 9.7 % Eos % (Auto) 0.2 % Baso % (Auto) 0.2 % Neut # (Auto) 3.00 (1.8-7.7) 10^3/u L Lymph # (Auto) 1.4 (0.8-4.8) 10^3/u L Brantley # (Auto) 0.5 (0.2-0.9) 10^3/u L Eos # (Auto) 0.0 (0.0-0.8) 10^3/u L Baso # (Auto) 0.0 (0.0-0.1) 10^3/u L Nucleated RBC % (a uto) 0 % Nucleated RBCs # 0.0 /100WBC Sodium 134 L (136-145) mmol/L Potassium 3.4 L (3.5-5.1) mmol/L Chloride 98 (98-107) mmol/L Carbon Dioxide 27 (22-29) mmol/L Anion Gap 12.4 (5-19) BUN 11 (8-23) mg/dL Creatinine 0.7 (0.5-0.9) mg/dL GFR Calculation Not Reportable Glucose 106 (65-115) mg/dL Calculated Osmolal ity 278 L (285-295) mOsm/k g Calcium 8.6 (8.5-10.5) mg/dL Total Bilirubin 0.2 (0.15-1.2) mg/dL AST 27 (0-32) U/L ALT 26 (0-33) U/L Alkaline Phosphata se 113 H (35-105) IU/L Total Protein 7.1 (6.6-8.7) g/dL Albumin 4.3 (3.5-5.2) g/dL Globulin 2.8 (1.3-4.6) g/dL CSF Appearance (CLEAR) CSF Color (COLORLESS) CSF Specific Gravi ty CSF WBC (0-5) /uL CSF RBC (0-0) 10^3/uL CSF Mononuclear # Auto (50-90) 10^3/uL CSF Mononuclear WB Cs % (50-90) % CSF Polynuclear WB Cs # (0-10) 10^3/uL CSF Polynuclear WB Cs % (0-10) % CSF Diff Comment CSF Glucose (40-70) mg/dL CSF Lactate CSF Total Protein (15-45) mg/dL Herpes Simplex Cara rce Cancelled SARS-CoV-2 Ag (Rap id) (Negative) HSV 1 DNA Cancelled HSV 2 DNA Cancelled 10/20/20 10/20/20 10/20/20 Range/Units 11:40 11:46 16:09 WBC (4.0-10.0) 10^3/ uL RBC (4.1-5.3) 10^6/u L Hgb (11.5-15.3) g/dL Hct (37.0-47.0) % MCV (81-99) fl MCH (28.0-34.0) pg MCHC (30.0-36.0) g/dL RDW (12.1-15.1) % Plt Count (130-400) 10^3/c mm MPV (7.4-10.4) fL Neut % (Auto) % Lymph % (Auto) % Brantley % (Auto) % Eos % (Auto) % Baso % (Auto) % Neut # (Auto) (1.8-7.7) 10^3/u L Lymph # (Auto) (0.8-4.8) 10^3/u L Brantley # (Auto) (0.2-0.9) 10^3/u L Eos # (Auto) (0.0-0.8) 10^3/u L Baso # (Auto) (0.0-0.1) 10^3/u L Nucleated RBC % (a uto) % Nucleated RBCs # /100WBC Sodium (136-145) mmol/L Potassium (3.5-5.1) mmol/L Chloride (98-107) mmol/L Carbon Dioxide (22-29) mmol/L Anion Gap (5-19) BUN (8-23) mg/dL Creatinine (0.5-0.9) mg/dL GFR Calculation Glucose (65-115) mg/dL Calculated Osmolal ity (285-295) mOsm/k g Calcium (8.5-10.5) mg/dL Total Bilirubin (0.15-1.2) mg/dL AST (0-32) U/L ALT (0-33) U/L Alkaline Phosphata se (35-105) IU/L Total Protein (6.6-8.7) g/dL Albumin (3.5-5.2) g/dL Globulin (1.3-4.6) g/dL CSF Appearance Clear (CLEAR) CSF Color Colorless (COLORLESS) CSF Specific Gravi ty 1.015 CSF WBC 2 (0-5) /uL CSF RBC 0 (0-0) 10^3/uL CSF Mononuclear # Auto 0.002 L (50-90) 10^3/uL CSF Mononuclear WB Cs % 100 H (50-90) % CSF Polynuclear WB Cs # 0.000 (0-10) 10^3/uL CSF Polynuclear WB Cs % 0 (0-10) % CSF Diff Comment Yes CSF Glucose 60 (40-70) mg/dL CSF Lactate TNP CSF Total Protein 43 (15-45) mg/dL Herpes Simplex Cara rce SARS-CoV-2 Ag (Rap id) Positive H (Negative) HSV 1 DNA HSV 2 DNA Imaging Data^: CT Head: Attestation: I personally reviewed and interpreted this imaging study as follows: Radiologist's impression: [address] [address] [address] Scan Report Signed Patient: Maira Poe Unit #: [id number] : 1945 Age/Sex: 75 / F ADM Date: 10/20/20 Loc: ER Room/Bed: Attending Dr: Ordering Provider/Ordering MD: Emiliano Warren Date of Service: 10/20/20 Procedure(s): CT head wo con* [id number] Accession Number(s): [id number] Report Number: [id number] PROCEDURE INFORMATION: Exam: CT Head Without Contrast Exam date and time: 10/20/2020 8:39 AM Age: 75 years old Clinical indication: Pain; Headache not specified; Patient HX: History of encephalitis 1 year ago; Additional info: Worst headache of her life TECHNIQUE: Imaging protocol: Computed tomography of the head without contrast. Total images: 183 Radiation optimization: All CT scans at this facility use at least one of these dose optimization techniques: automated exposure control; mA and/or kV adjustment per patient size (includes targeted exams where dose is matched to clinical indication); or iterative reconstruction. COMPARISON: CT head wo con* [id number] 04/21/2019 7:53 PM RADIATION DOSE METRICS: Total DLP (mGy-cm): 748.31 FINDINGS: Brain: Senescent calcifications in the basal ganglia. Cerebral ventricles: No ventriculomegaly. Paranasal sinuses: Visualized sinuses are unremarkable. No fluid levels. Mastoid air cells: Visualized mastoid air cells are well aerated. Orbital cavity: Prior lens extraction. Bones/joints: Unremarkable. No acute fracture. Soft tissues: Unremarkable. CT/CT head wo con* [id number] IMPRESSION: No acute intracranial abnormality. Radiation Dose CTDIVOL = (mGy): DLP = 748.31 (mGy-cm) Dictated By: Pino Fontenot MD Signed By: Pino Fontenot MD Signed Date/Time: 10/20/20 1001 DD/ Discharge Plan Discharge Condition: Stable Prescriptions: New Percocet 5-325 mg tablet 1 tab PO Q8H Qty: 7 RF: 0 acetaminophen [Acetaminophen Extra Strength] 500 mg tablet 500 mg PO Q6H PRN (Reason: pain) Qty: 14 RF: 0 Continued atorvastatin 40 mg tablet 40 mg PO DAILY RF: 0 nitrofurantoin monohyd/m-cryst 100 mg capsule 100 mg PO BID PRN (Reason: bladder infection) RF: 0 aspirin 81 mg tablet,delayed release (DR/EC) 81 mg PO DAILY RF: 0 levothyroxine 112 mcg tablet 112 mcg PO DAILY RF: 0 Restasis 0.05 % Dropperette 1 drp OPHTHALMIC (EYE) Q12H RF: 0 No Action oxycodone 5 mg tablet 5 mg PO Q8H PRN (Reason: pain) Qty: 7 RF: 0 Discharge Orders: Discharge Order (Routine); Ordered 10/20/20 Ordered By: Lars Lerner Discharge Diet: Regular Discharge Activity: Resume usual activity Patient Instructions: Opioid Safety Coding Level of Care Code ED Service Observer for Chg Fwd Exam Comprehensive Documented by User: Mirela Braswell MD 10/26/20 11:11 HPI - Headache General: Chief Complaint: ER Hold Stated Complaint: PAIN IN HEAD Time Seen by Provider: 10/20/20 08:38 PFS ED PFSH: Medical History (Updated 10/22/20 @ 07:53 by Nithin Fairchild MD) Chronic cystitis Family History Father , AT AGE 83 LUNG CANCER,BLADDER CANCER Cancer Mother , AT AGE 83 KIDNEY CANCER Cancer Social History Smoking and tobacco status: never smoked Alcohol intake: unknown Adopted: No Caregiver/support person: No Lives independently: No Household members: spouse Marital status: Current occupational status: retired Course Vital Signs: Vital signs: Vital Signs Temperature 98.3 F 10/20/20 22:07 Pulse Rate 72 10/20/20 22:07 Respiratory Rate 16 10/20/20 22:07 Blood Pressure 125/77 10/20/20 22:07 Pulse Oximetry 95 10/20/20 22:07 MDM - Headache Lab Data: Labs: Lab Results 10/20/20 10/20/20 10/20/20 Range/Units 08:57 08:57 11:40 WBC 4.9 (4.0-10.0) 10^3/ uL RBC 4.83 (4.1-5.3) 10^6/u L Hgb 14.4 (11.5-15.3) g/dL Hct 44.4 (37.0-47.0) % MCV 91.9 (81-99) fl MCH 29.8 (28.0-34.0) pg MCHC 32.4 (30.0-36.0) g/dL RDW 13.1 (12.1-15.1) % Plt Count 216 (130-400) 10^3/c mm MPV 9.2 (7.4-10.4) fL Neut % (Auto) 61.7 % Lymph % (Auto) 28.0 % Brantley % (Auto) 9.7 % Eos % (Auto) 0.2 % Baso % (Auto) 0.2 % Neut # (Auto) 3.00 (1.8-7.7) 10^3/u L Lymph # (Auto) 1.4 (0.8-4.8) 10^3/u L Brantley # (Auto) 0.5 (0.2-0.9) 10^3/u L Eos # (Auto) 0.0 (0.0-0.8) 10^3/u L Baso # (Auto) 0.0 (0.0-0.1) 10^3/u L Nucleated RBC % (a uto) 0 % Nucleated RBCs # 0.0 /100WBC Sodium 134 L (136-145) mmol/L Potassium 3.4 L (3.5-5.1) mmol/L Chloride 98 (98-107) mmol/L Carbon Dioxide 27 (22-29) mmol/L Anion Gap 12.4 (5-19) BUN 11 (8-23) mg/dL Creatinine 0.7 (0.5-0.9) mg/dL GFR Calculation Not Reportable Glucose 106 (65-115) mg/dL Calculated Osmolal ity 278 L (285-295) mOsm/k g Calcium 8.6 (8.5-10.5) mg/dL Total Bilirubin 0.2 (0.15-1.2) mg/dL AST 27 (0-32) U/L ALT 26 (0-33) U/L Alkaline Phosphata se 113 H (35-105) IU/L Total Protein 7.1 (6.6-8.7) g/dL Albumin 4.3 (3.5-5.2) g/dL Globulin 2.8 (1.3-4.6) g/dL CSF Appearance (CLEAR) CSF Color (COLORLESS) CSF Specific Gravi ty CSF WBC (0-5) /uL CSF RBC (0-0) 10^3/uL CSF Mononuclear # Auto (50-90) 10^3/uL CSF Mononuclear WB Cs % (50-90) % CSF Polynuclear WB Cs # (0-10) 10^3/uL CSF Polynuclear WB Cs % (0-10) % CSF Diff Comment CSF Glucose (40-70) mg/dL CSF Lactate CSF Total Protein (15-45) mg/dL Herpes Simplex Cara rce Cancelled SARS-CoV-2 Ag (Rap id) (Negative) HSV 1 DNA Cancelled HSV 2 DNA Cancelled 10/20/20 10/20/20 10/20/20 Range/Units 11:40 11:46 16:09 WBC (4.0-10.0) 10^3/ uL RBC (4.1-5.3) 10^6/u L Hgb (11.5-15.3) g/dL Hct (37.0-47.0) % MCV (81-99) fl MCH (28.0-34.0) pg MCHC (30.0-36.0) g/dL RDW (12.1-15.1) % Plt Count (130-400) 10^3/c mm MPV (7.4-10.4) fL Neut % (Auto) % Lymph % (Auto) % Brantley % (Auto) % Eos % (Auto) % Baso % (Auto) % Neut # (Auto) (1.8-7.7) 10^3/u L Lymph # (Auto) (0.8-4.8) 10^3/u L Brantley # (Auto) (0.2-0.9) 10^3/u L Eos # (Auto) (0.0-0.8) 10^3/u L Baso # (Auto) (0.0-0.1) 10^3/u L Nucleated RBC % (a uto) % Nucleated RBCs # /100WBC Sodium (136-145) mmol/L Potassium (3.5-5.1) mmol/L Chloride (98-107) mmol/L Carbon Dioxide (22-29) mmol/L Anion Gap (5-19) BUN (8-23) mg/dL Creatinine (0.5-0.9) mg/dL GFR Calculation Glucose (65-115) mg/dL Calculated Osmolal ity (285-295) mOsm/k g Calcium (8.5-10.5) mg/dL Total Bilirubin (0.15-1.2) mg/dL AST (0-32) U/L ALT (0-33) U/L Alkaline Phosphata se (35-105) IU/L Total Protein (6.6-8.7) g/dL Albumin (3.5-5.2) g/dL Globulin (1.3-4.6) g/dL CSF Appearance Clear (CLEAR) CSF Color Colorless (COLORLESS) CSF Specific Gravi ty 1.015 CSF WBC 2 (0-5) /uL CSF RBC 0 (0-0) 10^3/uL CSF Mononuclear # Auto 0.002 L (50-90) 10^3/uL CSF Mononuclear WB Cs % 100 H (50-90) % CSF Polynuclear WB Cs # 0.000 (0-10) 10^3/uL CSF Polynuclear WB Cs % 0 (0-10) % CSF Diff Comment Yes CSF Glucose 60 (40-70) mg/dL CSF Lactate TNP CSF Total Protein 43 (15-45) mg/dL Herpes Simplex Cara rce SARS-CoV-2 Ag (Rap id) Positive H (Negative) HSV 1 DNA HSV 2 DNA Discharge Plan Discharge Condition: Stable Prescriptions: New Percocet 5-325 mg tablet 1 tab PO Q8H Qty: 7 RF: 0 acetaminophen [Acetaminophen Extra Strength] 500 mg tablet 500 mg PO Q6H PRN (Reason: pain) Qty: 14 RF: 0 Continued atorvastatin 40 mg tablet 40 mg PO DAILY RF: 0 nitrofurantoin monohyd/m-cryst 100 mg capsule 100 mg PO BID PRN (Reason: bladder infection) RF: 0 aspirin 81 mg tablet,delayed release (DR/EC) 81 mg PO DAILY RF: 0 levothyroxine 112 mcg tablet 112 mcg PO DAILY RF: 0 Restasis 0.05 % Dropperette 1 drp OPHTHALMIC (EYE) Q12H RF: 0 No Action oxycodone 5 mg tablet 5 mg PO Q8H PRN (Reason: pain) Qty: 7 RF: 0 Discharge Orders: Discharge Order (Routine); Ordered 10/20/20 Ordered By: Lars Lerner Discharge Diet: Regular Discharge Activity: Resume usual activity Patient Instructions: Opioid Safety Coding Level of Care Code ED Service Observer for Chg Fwd Exam Comprehensive
[2020-10-20] MEDS: metoclopramide 5 mg/mL SDV 2 mL 10 MG IVP (09:14)
[2020-10-20] MEDS: ketorolac 30 mg/mL INJ IVP ×2 (09:14→19:31)
[2020-10-20] MEDS: diphenhydrAMINE 50 mg/mL SDV 1mL 25 MG IVP (09:14)
[2020-10-20] MEDS: dexamethasone 10 mg/mL INJ IVP (09:15)
[2020-10-20 09:16] LABS: Basophils % 0.2 %; Eosinophils % 0.2 %; Hematocrit 44.4 % (37.0-47.0); Hemoglobin 14.4 g/dL (11.5-15.3); Lymphocytes # 1.4 10^3/uL (0.8-4.8); Mean Corpuscular HGB Conc 32.4 g/dL (30.0-36.0); Mean Corpuscular Hemoglobin 29.8 pg (28.0-34.0); Mean Corpuscular Volume 91.9 fl (81-99); Mean Platelet Volume 9.2 fL (7.4-10.4); Monocytes # 0.5 10^3/uL (0.2-0.9); Monocytes % 9.7 %; Neutrophils % 61.7 %; Nucleated Red Blood Cells % 0 %; Platelet Count 216 10^3/cmm (130-400); Red Blood Count 4.83 10^6/uL (4.1-5.3); Red Cell Distribution Width 13.1 % (12.1-15.1); White Blood Count 4.9 10^3/uL (4.0-10.0)
[2020-10-20] MEDS: sodium chloride 0.9% 500 ML 999 ML IV (09:25)
[2020-10-20 09:39] LABS: Alanine Aminotransferase 26 U/L (0-33); Albumin Level 4.3 g/dL (3.5-5.2); Alkaline Phosphatase 113 IU/L (35-105); Anion Gap 12.4 (5-19); Aspartate Amino Transferase 27 U/L (0-32); Blood Urea Nitrogen 11 mg/dL (8-23); Calcium 8.6 mg/dL (8.5-10.5); Carbon Dioxide 27 mmol/L (22-29); Chloride 98 mmol/L (98-107); Globulin 2.8 g/dL (1.3-4.6); Glucose 106 mg/dL (65-115); Osmolality Calculated 278 mOsm/kg (285-295); Potassium 3.4 mmol/L (3.5-5.1); Sodium 134 mmol/L (136-145); Total Bilirubin 0.2 mg/dL (0.15-1.2); Total Protein 7.1 g/dL (6.6-8.7)
[2020-10-20] MEDS: potassium chloride ER 20 mEq Tablet PO (10:36)
[2020-10-20] MEDS: morphine 4 mg/mL SDV 1 mL IVP (10:36)
--- NOTE | 2020-10-20 11:44 | P.PNCC_ITS ---
Documented by User: Mirela Brasewll MD 10/20/20 11:46 Critical Care Event Note Critical Care Event The high probability of a clinically significant, sudden or life threatening deterioration of the patient's [neurological] system(s) required my full and direct attention, intervention and personal management. The critical care time is as shown. This time is in addition to time spent performing any reported procedures but includes the following: [x] Data and vital sign review and interpretation [x] Patient assessment, examination and intervention [x] Documentation [x] Medication orders and management Critical Care Time Critical Care Time: Code activated: No Critical Care Time (min): 0 Procedures Lumbar Puncture Time out performed: Yes Patient position: left lateral decubitus Skin prep: Povidone-Iodine 1% Local anesthetic used: Lidocaine 1% Amount of anesthesia used (ml): 5 Spinal needle gauge: 24G Interspace used: L4-L5 Fluid initially obtained: clear Complications: none Coding Level of Care Code Acute Pallet Sorter for g Fwd Documented by User: ARTURO Mandujano 10/21/20 07:05 Coding Level of Care Code Acute Pallet Sorter for Chg Fwd
[2020-10-20 11:57] LABS: CSF Mononuclear # 0.002 10^3/uL (50-90); Mononuclear WBC CSF % 100 % (50-90); Polynuclear WBC CSF % 0 % (0-10); Red Blood Cell CSF 0 10^3/uL (0-0); White Blood Cell CSF 2 /uL (0-5)
[2020-10-20 12:01] LABS: Appearance CSF CLEAR (CLEAR); Color CSF COLORLESS (COLORLESS)
[2020-10-20 12:02] LABS: Pathology Referral Yes
--- NOTE | 2020-10-20 12:43 | PM.HP ---
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 Upon arrival in the ER she was worked up for above mention complain. Imaging studies: C.T Head without contrast:No acute intracranial pathology Pertinent Labs : WBC : 4.9 H/H : 14.4/44, PLT : 216 , Serum Na: 134, Serum : 3.4, BUN/SCR : 11/0.7 L.P done in ER : Was negative for bacterial meningitis. Rapid COVID :Positive Review of Systems Const: Denies: fever(s), chills, body aches, change in appetite or diaphoresis Card: Denies: palpitations, edema, swelling of feet/ankles, dyspnea on exertion, orthopnea or leg pain with exertion Resp: Denies: dyspnea, productive cough, wheezing or pain on inspiration GI: Denies: abdominal pain, vomiting, diarrhea or constipation : Denies: flank pain Musc: Denies: back pain, extremity pain or extremity swelling Neuro: Denies: difficulty walking or confusion Medications/Allergies Home Medications Medication Instructions Recorded Confirmed Last Taken Type aspirin 81 mg PO DAILY 04/21/19 10/20/20 10/19/20 History cyclosporine [Restasis] 1 drp OPHTHALMIC (EYE) Q12H 04/21/19 10/20/20 10/20/20 History levothyroxine 112 mcg PO DAILY 04/21/19 10/20/20 10/20/20 History atorvastatin 40 mg PO DAILY 10/20/20 10/20/20 10/18/20 History nitrofurantoin monohyd/m-cryst 100 mg PO BID PRN 10/20/20 10/20/20 Unknown History oxycodone-acetaminophen [Percocet] 1 tab PO Q8H #7 tab 10/20/20 Unknown Rx Allergies Allergy/AdvReac Type Severity Reaction Status Date / Time meperidine [From Demerol] Allergy ADR-Vomitin Verified 09/16/20 15:23 g shrimp Allergy Unknown Verified 09/16/20 15:23 Sulfa (Sulfonamide Allergy ADR-Vomitin Verified 09/16/20 15:23 Antibiotics) g lobster Allergy Unknown Uncoded 04/17/19 18:49 PFSH Acute PFSH: Medical History (Updated 10/21/20 @ 13:45 by Lars Lerner MD) Chronic cystitis Family History Father , AT AGE 83 LUNG CANCER,BLADDER CANCER Cancer Mother , AT AGE 83 KIDNEY CANCER Cancer Social History Smoking and tobacco status: never smoked Alcohol intake: unknown Adopted: No Caregiver/support person: No Lives independently: No Household members: spouse Marital status: Current occupational status: retired Vitals/I&O/Wt Last Vital Signs Temp 98 F 10/20/20 12:24 Pulse 70 10/20/20 12:24 Resp 14 10/20/20 12:24 BP 116/55 10/20/20 12:24 Pulse Ox 94 10/20/20 12:24 Weight last 48 hrs Weight 70.307 kg Physical Exam Const: COMMON NORMALS: patient oriented x3 HENMT: COMMON NORMALS: normocephalic and atraumatic HEAD & SCALP: normocephalic and atraumatic Resp: COMMON NORMALS: clear to auscultation bilaterally AUSCULTATION: clear to auscultation bilaterally Cardio: COMMON NORMALS: regular rate, regular rhythm, S1 normal heart sound present, S2 normal heart sound present, No gallops present (Cardio), No murmurs present (Cardio), No rub (Cardio) and Peripheral pulses 2+ throughout RATE: regular rate RHYTHM: regular rhythm HEART SOUNDS: S1 normal heart sound present and S2 normal heart sound present PERIPHERAL PULSES: Peripheral pulses 2+ throughout GI: COMMON NORMALS: Normal to inspection, nondistended, normoactive bowel sounds present, Soft to palpation, non-tender, No hepatosplenomegaly present and no masses AUSCULTATION: Yes normoactive bowel sounds PALPATION: Yes Soft to palpation and Yes No hepatosplenomegaly present RECTAL EXAM: deferred Extremity: COMMON NORMALS: no clubbing, cyanosis or edema and no pedal edema Neuro: COMMON NORMALS: patient oriented x3 Data : 10/20/20 08:57 10/20/20 08:57 A&P Assessment and plan (1) COVID-19: Patient was Eligible for Antibody infusion.Received Antibody infusion. Status: Acute (2) Headache: Likely related to COVID-19 Infection Pain control ( Received Toradol in the ER ) Is being discharged on percocet. Status: Acute (3) Hypothyroidism: Status: Acute Additional A&P Information Patient was initially being admitted for Headache observation pending COVID -19 Test.Given the fact that her headache is related to her COVID-19 infection and she don't need to be admitted for the COVID -19 Infection and she has responded to pain medications.She is being discharged home form ER. Attestations Medical Necessity Statement*: Patient was initially being admitted for Headache observation pending COVID -19 Test. Given the fact that her headache is related to her COVID-19 infection and she don't need to be admitted for the COVID -19 Infection and has responded to pain medications.She is being discharged home form ER. Coding Level of Care Code Acute Dust Mop Maker for Patrick Dubose Diagnoses COVID-19 U07.1 Headache R51.9 Hypothyroidism E03.9
[2020-10-20 12:52] LABS: Glucose CSF 60 mg/dL (40-70); Total Protein CSF 43 mg/dL (15-45)
[2020-10-20 13:01] LABS: CSF Specific Gravity 1.015
--- NOTE | 2020-10-20 13:33 | PC.NURSE ---
Patient provided food and drink, her O2 drops intermittently down to 89-93% RA, she is placed on O2 at 2L?NC. is notified.
[2020-10-20] MEDS: enoxaparin 40 mg/0.4 mL Syringe SUBCUT (14:38)
--- NOTE | 2020-10-20 16:11 | PC.NURSE ---
Doctor is notified that patient is reporting her is positive for covid, verbal orders to obtain covid testing. Unit is notified due to report being called for room 259-2, they report they will need to know results before she is admitted to floor.
[2020-10-20 18:37] LABS: SARS Covid-2 Antigen Positive (Negative)
[2020-10-20] MEDS: oxyCODONE-APAP 5-325 mg Tablet 1 TAB PO (19:07)
--- NOTE | 2020-10-21 13:53 | PM.DCS ---
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 Upon arrival in the ER she was worked up for above mention complain. Imaging studies: C.T Head without contrast:No acute intracranial pathology Pertinent Labs : WBC : 4.9 H/H : 14.4/44, PLT : 216 , Serum Na: 134, Serum : 3.4, BUN/SCR : 11/0.7. L.P done in ER : Was negative for bacterial meningitis. Rapid COVID :Positive. COVID-19: Patient was Eligible for Antibody infusion.Received Antibody infusion. Headache: Likely related to COVID-19 Infection Pain control ( Received Toradol in the ER ).She is being discharged on percocet as well as tylenol. She will continue to follow her PCP as outpatient. Physical Exam Const: COMMON NORMALS: patient oriented x3 HENMT: COMMON NORMALS: normocephalic and atraumatic HEAD & SCALP: normocephalic and atraumatic Resp: COMMON NORMALS: clear to auscultation bilaterally AUSCULTATION: clear to auscultation bilaterally Cardio: COMMON NORMALS: regular rate, regular rhythm, S1 normal heart sound present, S2 normal heart sound present, No gallops present (Cardio), No murmurs present (Cardio), No rub (Cardio) and Peripheral pulses 2+ throughout RATE: regular rate RHYTHM: regular rhythm HEART SOUNDS: S1 normal heart sound present and S2 normal heart sound present PERIPHERAL PULSES: Peripheral pulses 2+ throughout GI: COMMON NORMALS: Normal to inspection, nondistended, normoactive bowel sounds present, Soft to palpation, non-tender, No hepatosplenomegaly present and no masses AUSCULTATION: Yes normoactive bowel sounds PALPATION: Yes Soft to palpation and Yes No hepatosplenomegaly present RECTAL EXAM: deferred Extremity: COMMON NORMALS: no clubbing, cyanosis or edema and no pedal edema Neuro: COMMON NORMALS: patient oriented x3 Discharge Data Data Completed and Pending: Completed Studies During Hospitalization Category Date Time Status CT head wo con* 7 0450 Urgent Cat Scan 10/20/20 08:39 Completed Pending at discharge Category Date Time Status CSF Culture & Gra m Stain Stat Lab 10/20/20 11:46 Results CSF Culture Stat Lab 10/20/20 11:30 Ordered CSF Specific Grav ity Stat Lab 10/20/20 11:40 Results Glucose CSF Stat Lab 10/20/20 11:40 Results Herpes Simplex Vi charan DNA Stat Lab 10/20/20 11:40 Received Lactate CSF Stat Lab 10/20/20 11:40 Results Total Protein CSF Stat Lab 10/20/20 11:40 Results Labs from last 24 hours 10/20/20 16:09 SARS-CoV-2 Ag (Rap id) Positive H Vitals: Last Vital Signs Temp 98.3 F 10/20/20 22:07 Pulse 72 10/20/20 22:07 Resp 16 10/20/20 22:07 BP 125/77 10/20/20 22:07 Pulse Ox 95 10/20/20 22:07 Discharge Plan Discharge Condition: Stable Prescriptions: New Percocet 5-325 mg tablet 1 tab PO Q8H Qty: 7 RF: 0 acetaminophen [Acetaminophen Extra Strength] 500 mg tablet 500 mg PO Q6H PRN (Reason: pain) Qty: 14 RF: 0 Continued atorvastatin 40 mg tablet 40 mg PO DAILY RF: 0 nitrofurantoin monohyd/m-cryst 100 mg capsule 100 mg PO BID PRN (Reason: bladder infection) RF: 0 aspirin 81 mg tablet,delayed release (DR/EC) 81 mg PO DAILY RF: 0 levothyroxine 112 mcg tablet 112 mcg PO DAILY RF: 0 Restasis 0.05 % Dropperette 1 drp OPHTHALMIC (EYE) Q12H RF: 0 Discharge Orders: Discharge Order (Routine); Ordered 10/20/20 Ordered By: Lars Lerner Discharge Diet: Regular Discharge Activity: Resume usual activity Patient Instructions: Opioid Safety Discharge Attestations Time Spent in Discharge Care*: less than 30 min Specific Discharge Activities: educating patient, educating and/or supporting family/caregiver, discussing with community case manager/social workers/dc planners, documenting/other paperwork and evaluating patient/reviewing data Status at Discharge: Cognitive status at discharge: cognitively intact, Behavioral status at discharge: cooperative, Functional status at discharge: independent ambulation Overall status at discharge: patient is back to baseline Quality Metrics Clinical Quality Measures During this hospital stay, did patient experience: None Coding Level of Care Code Acute Chg FW DC note Diagnoses COVID-19 U07.1 Headache R51.9 Hypothyroidism E03.9
[2020-10-28 17:07] LABS: HSV 1 DNA NOT DETECTED; HSV 2 DNA NOT DETECTED; HSV Source CEREBROSPINAL FLUID
== END 2020-10-20 22:20 | disposition home or self-care (01) ==
LOC: ER 11:36 → ER IP 15:32 → MEDSURG 17:21 → ER IP 11-15 11:06
PROVIDERS: Emergency Medicine; Admitting Provider Internal Medicine; Emergency Provider Physician Assistant; PCP Family Medicine; Visit Provider Internal Medicine
DX: U07.1 COVID-19 (principal); R51.9 Headache, unspecified; Z79.82 Long term (current) use of aspirin; E78.5 Hyperlipidemia, unspecified; E03.9 Hypothyroidism, unspecified
CPT/HCPCS: 62270; 70450; 80053; 80500; 82945; 83605; 84157; 84315; 85025; 87070; 87075; 87205; 87426; 87530; 89050; 96365; 96372; 96375; 96376; 99284; G0378; J1100; J1200; J1650; J1885; J2270; J2765; J7040

== ENCOUNTER 2020-10-22 03:39 | Emergency (ER) | payer MEDICARE, OTHER, SELFPAY ==
[2020-10-22] VITALS (7 sets, daily range): BP systolic 111–142; BP diastolic 52–74; PULSE 56–74; RESP 16–18; TEMP 37.4; O2SAT 88–100; BMI 28.3
--- NOTE | 2020-10-22 04:18 | XRR_ITS ---
PROCEDURE INFORMATION: Exam: XR Chest Exam date and time: 10/22/2020 4:18 AM Age: 75 years old Clinical indication: Dyspnea; Additional info: SOB TECHNIQUE: Imaging protocol: XR of the chest. Views: 1 view. COMPARISON: CT abdomen pelvis w con* [id number] 04/17/2019 9:49 PM FINDINGS: Lungs: Patchy streaky densities in the lungs. Slight haziness in the lateral right lower lung. No consolidation. Pleural spaces: Pleural calcification along the lateral aspect of the left lung again evident. No pneumothorax or obvious pleural fluid. Heart/Mediastinum: Possible interval worsening of the cardiomegaly. Suspicion of left atrial enlargement. Vasculature: Probable azygos vein distension. Mild aortic elongation. Bones/joints: Spurring at multiple disc levels. Continued slight left convex scoliosis. No obvious acute bony disease. XR/XR chest 1V portable [id number] IMPRESSION: 1. Possible interval worsening of the cardiomegaly. Suspicion of left atrial enlargement and azygos vein distension. 2. Patchy streaky densities in the lungs questionably due to atelectasis, interstitial disease such as edema and/or scarring. Haziness in the lateral right lower lung raising the possibility of infectious disease. 3. Left pleural calcifications raising the possibility of prior asbestos exposure. Other findings detailed above.
--- NOTE | 2020-10-22 04:42 | ECG_ITS ---
[facility] Test Date: 2020-10-22 Pat Name: Maira Poe Department: Room: Gender: Female Procedural Nurse: : 1945 Requested By: Elton Braun Order Number: [id number] Kristyn MD: Kathy Cadena M.D. Measurements Intervals [place] Rate: 75 P: 54 NC: 190 QRS: 61 QRSD: 84 T: 66 QT: 407 QTc: 455 Interpretive Statements SINUS RHYTHM WITH FREQUENT VENTRICULAR PREMATURE COMPLEXES ABNORMAL RHYTHM ECG Compared to ECG 04/17/2019 22:47:21 Ventricular premature complex(es) now present First degree AV block no longer present T-wave abnormality no longer present Electronically Signed On 10-24-2020 9:06:46 CDT by Kathy Cadena M.D. [id number]
--- NOTE | 2020-10-22 05:04 | W.ED.COVID ---
Documented by User: Elton Braun MD 10/22/20 05:06 HPI - COVID General: Chief Complaint: COVID symptoms Stated Complaint: COVID +, sob Time Seen by Provider: 10/22/20 04:32 Source: patient Mode of arrival: ambulatory Limitations: no limitations Triage information: Has fever, cough or shortness of breath. Exposure to COVID + person last 14 days History of Present Illness: HPI Narrative: 75-year-old female who states she has had a headache over the last 3 days. She was seen here 2 days ago and diagnosed with Covid. She had a lumbar puncture that was normal. 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 She states that since being home her headache is gotten worse and is currently 9 out of 10 and is sharp in nature. She did have a head CT that was normal and showed no signs of subarachnoid hemorrhage. She has had some shortness of breath and cough as well. She has had a low-grade fever. Denies any worsening improving factors. COVID 19 common symptoms: positive fever(s), non-productive cough, dyspnea and headache(s); negative throat pain, nausea, vomiting or diarrhea COVID 19 other sytmptoms: negative chest pain COVID Results: SARS-CoV-2 Antigen (Rapid) Positive (Negative) H 10/20/20 16:10/20/20 Review of Systems Const: Reports: fever(s) Eyes: Denies: blurry vision or eye discomfort ENMT: Denies: throat pain or dental pain Card: Denies: chest pain Resp: Reports: dyspnea and non-productive cough GI: Denies: abdominal pain, nausea, vomiting or diarrhea : Denies: dysuria Musc: Denies: neck pain or back pain Skin/Breast: Denies: rash Neuro: Reports: headache(s) Psych: Denies: depression Ayush/Lymph: Denies: easy bruising All/Imm: Denies: urticaria PFSH ED PFSH: Medical History (Updated 10/22/20 @ 07:53 by Nithin Fairchild MD) Chronic cystitis Family History Father , AT AGE 83 LUNG CANCER,BLADDER CANCER Cancer Mother , AT AGE 83 KIDNEY CANCER Cancer Social History (Reviewed 10/21/20 @ 07:14 by JENNIFER Mandujano Smoking and tobacco status: never smoked Alcohol intake: unknown Adopted: No Caregiver/support person: No Lives independently: No Household members: spouse Marital status: Current occupational status: retired Physical Exam Const: COMMON NORMALS: no acute distress, patient oriented x3 and healthy appearing HENMT: COMMON NORMALS: normocephalic and atraumatic HEAD & SCALP: normocephalic and atraumatic Eye: COMMON NORMALS: Equal, round and reactive pupils present and EOMs intact bilaterally PUPIL: Yes Equal, round and reactive pupils present Neck/C-Spine: COMMON NORMALS: full ROM and supple Chest: COMMONS NORMALS: normal inspection of the chest and normal palpation of entire chest wall Resp: COMMON NORMALS: normal respiratory effort, No retractions, No use of accessory muscles and clear to auscultation bilaterally AUSCULTATION: clear to auscultation bilaterally Cardio: COMMON NORMALS: regular rate, regular rhythm and No murmurs present (Cardio) RATE: regular rate RHYTHM: regular rhythm GI: COMMON NORMALS: Normal to inspection, nondistended, normoactive bowel sounds present, Soft to palpation, non-tender and no masses PALPATION: Yes Soft to palpation Extremity: COMMON NORMALS: normal to inspection and full ROM Neuro: COMMON NORMALS: patient oriented x3, moves all extremities and no focal motor deficits Psych: COMMON NORMALS: mental status grossly normal, Normal thought process present and cooperative THOUGHT PROCESS: Normal thought process present Skin: COMMON NORMALS: no rashes or lesions noted and no wounds GENERAL SKIN EXAM: no rashes or lesions noted Course Vital Signs: Vital signs: Vital Signs Temperature 99.3 F 10/22/20 04:22 Pulse Rate 56 L 10/22/20 04:22 Respiratory Rate 18 10/22/20 04:22 Blood Pressure 111/68 10/22/20 04:22 Pulse Oximetry 90 10/22/20 08:42 MDM - COVID Lab Data: Labs: Lab Results 10/22/20 10/22/20 10/22/20 Range/Units 05:15 05:15 05:15 WBC 8.6 (4.0-10.0) 10^3/ uL RBC 4.42 (4.1-5.3) 10^6/u L Hgb 13.0 (11.5-15.3) g/dL Hct 40.3 (37.0-47.0) % MCV 91.2 (81-99) fl MCH 29.4 (28.0-34.0) pg MCHC 32.3 (30.0-36.0) g/dL RDW 13.2 (12.1-15.1) % Plt Count 174 (130-400) 10^3/c mm MPV 9.3 (7.4-10.4) fL Neut % (Auto) 81.7 % Lymph % (Auto) 14.0 % [place] % (Auto) 3.7 % Eos % (Auto) 0.0 % Baso % (Auto) 0.3 % Neut # (Auto) 7.01 (1.8-7.7) 10^3/u L Lymph # (Auto) 1.2 (0.8-4.8) 10^3/u L [place] # (Auto) 0.3 (0.2-0.9) 10^3/u L Eos # (Auto) 0.0 (0.0-0.8) 10^3/u L Baso # (Auto) 0.0 (0.0-0.1) 10^3/u L Nucleated RBC % (a uto) 0 % Nucleated RBCs # 0.0 /100WBC ESR (0-15) mm/hr D-Dimer (0-0.59) ug/mIFE U Sodium 134 L (136-145) mmol/L Potassium 3.6 (3.5-5.1) mmol/L Chloride 97 L (98-107) mmol/L Carbon Dioxide 25 (22-29) mmol/L Anion Gap 15.6 (5-19) BUN 16 (8-23) mg/dL Creatinine 0.8 (0.5-0.9) mg/dL GFR Calculation Not Reportable Glucose 104 (65-115) mg/dL Calculated Osmolal ity 279 L (285-295) mOsm/k g Lactic Acid 0.9 (0.5-2.2) mmol/L Calcium 8.6 (8.5-10.5) mg/dL Total Bilirubin 0.2 (0.15-1.2) mg/dL AST 29 (0-32) U/L ALT 21 (0-33) U/L Alkaline Phosphata se 99 (35-105) IU/L C-Reactive Protein 101.4 H (0.0-4.9) mg/L NT-Pro-B Natriuret Pep (0-450) pg/mL Total Protein 6.3 L (6.6-8.7) g/dL Albumin 3.5 (3.5-5.2) g/dL Globulin 2.8 (1.3-4.6) g/dL Procalcitonin (0-0.5) ng/mL 10/22/20 10/22/20 10/22/20 Range/Units 05:15 05:15 05:15 WBC (4.0-10.0) 10^3/ uL RBC (4.1-5.3) 10^6/u L Hgb (11.5-15.3) g/dL Hct (37.0-47.0) % MCV (81-99) fl MCH (28.0-34.0) pg MCHC (30.0-36.0) g/dL RDW (12.1-15.1) % Plt Count (130-400) 10^3/c mm MPV (7.4-10.4) fL Neut % (Auto) % Lymph % (Auto) % [place] % (Auto) % Eos % (Auto) % Baso % (Auto) % Neut # (Auto) (1.8-7.7) 10^3/u L Lymph # (Auto) (0.8-4.8) 10^3/u L [place] # (Auto) (0.2-0.9) 10^3/u L Eos # (Auto) (0.0-0.8) 10^3/u L Baso # (Auto) (0.0-0.1) 10^3/u L Nucleated RBC % (a uto) % Nucleated RBCs # /100WBC ESR 31 H (0-15) mm/hr D-Dimer 0.64 H (0-0.59) ug/mIFE U Sodium (136-145) mmol/L Potassium (3.5-5.1) mmol/L Chloride (98-107) mmol/L Carbon Dioxide (22-29) mmol/L Anion Gap (5-19) BUN (8-23) mg/dL Creatinine (0.5-0.9) mg/dL GFR Calculation Glucose (65-115) mg/dL Calculated Osmolal ity (285-295) mOsm/k g Lactic Acid (0.5-2.2) mmol/L Calcium (8.5-10.5) mg/dL Total Bilirubin (0.15-1.2) mg/dL AST (0-32) U/L ALT (0-33) U/L Alkaline Phosphata se (35-105) IU/L C-Reactive Protein (0.0-4.9) mg/L NT-Pro-B Natriuret Pep 543 H (0-450) pg/mL Total Protein (6.6-8.7) g/dL Albumin (3.5-5.2) g/dL Globulin (1.3-4.6) g/dL Procalcitonin 0.39 (0-0.5) ng/mL COVID Results: SARS-CoV-2 Antigen (Rapid) Positive (Negative) H 10/20/20 16:09 10/20/20 Discharge Plan Discharge Patient Disposition: Home Clinical Impression: Headache, COVID-19 Condition: Stable Prescriptions: New oxycodone 5 mg tablet 5 mg PO Q8H PRN (Reason: pain) Qty: 7 RF: 0 No Action atorvastatin 40 mg tablet 40 mg PO DAILY RF: 0 nitrofurantoin monohyd/m-cryst 100 mg capsule 100 mg PO BID PRN (Reason: bladder infection) RF: 0 Percocet 5-325 mg tablet 1 tab PO Q8H Qty: 7 RF: 0 aspirin 81 mg tablet,delayed release (DR/EC) 81 mg PO DAILY RF: 0 levothyroxine 112 mcg tablet 112 mcg PO DAILY RF: 0 Restasis 0.05 % Dropperette 1 drp OPHTHALMIC (EYE) Q12H RF: 0 Discharge Orders: Discharge ED (Routine); Ordered 10/22/20 Ordered By: Nithin Fairchild Other Ambulatory Orders: DME: Oxygen (Order) Location: None Selected Ordered By: Nithin Fairchild Referrals: Lauren Carrasco MD [Primary Care Provider] - Discharge Diet: Usual diet Discharge Activity: Resume usual activity Patient Instructions: Viral Pneumonia (ED), Acute Headache (ED), Opioid Safety Activity Restrictions/Additional Instructions: Thank you for visiting the emergency department. You were seen and evaluated for headache. This is most likely related to your COVID-19 infection. You may use [id number] medications for your symptoms however please do not exceed the daily recommended dosage and please keep in mind that many namebrand medications contain the same active ingredients. Your viral cultures from your prior lumbar puncture are still pending. Please follow-up with your primary care provider. An incidental finding was that your BNP was mildly elevated. You may require further outpatient testing once your COVID-19 symptoms resolved. This can be arranged by your primary care provider. Please return to the emergency department if you experience worsening of your symptoms, new numbness, tingling, weakness, worsening shortness of breath, chest pain, or anything else that you are concerned about and feel needs emergency department evaluation. Sign Out Sign Out Data: Patient Sign Out occurred on 10/22/20 at 05:54. Patient's care was discussed, and care was transferred from to Nithin Fairchild MD. Coding Level of Care Code ED Furniture Mover Driver for Chg Fwd Exam Comprehensive Documented by User: Nithin Fairchild MD 10/22/20 09:10 HPI - COVID General: Chief Complaint: COVID symptoms Stated Complaint: COVID +, sob Time Seen by Provider: 10/22/20 04:32 COVID Results: SARS-CoV-2 Antigen (Rapid) Positive (Negative) H 10/20/20 16:09 10/20/20 [facility]: Medical History (Updated 10/22/20 @ 07:53 by Nithin Fairchild MD) Chronic cystitis Family History Father , AT AGE 83 LUNG CANCER,BLADDER CANCER Cancer Mother , AT AGE 83 KIDNEY CANCER Cancer Social History Smoking and tobacco status: never smoked Alcohol intake: unknown Adopted: No Caregiver/support person: No Lives independently: No Household members: spouse Marital status: Current occupational status: retired Course Vital Signs: Vital signs: Vital Signs Temperature 99.3 F 10/22/20 04:22 Pulse Rate 56 L 10/22/20 04:22 Respiratory Rate 18 10/22/20 04:22 Blood Pressure 111/68 10/22/20 04:22 Pulse Oximetry 90 10/22/20 08:42 MDM - COVID MDM Narrative: Medical decision making narrative: Patient care handoff received from overnight physician Dr. Braun pending laboratory evaluation for disposition. Based on x-ray read additional labs were ordered. Procalcitonin ordered secondary to relative asymmetry of read which was negative. Additionally read comments on possibility of fluid overload, BNP only minimally elevated and in the context of better explanation for the patient's symptoms this can safely be followed in the outpatient setting, additionally patient does not have evidence of significant fluid overload on exam. D-dimer was elevated and therefore CTA ordered. Patient has findings consistent with Covid/viral pneumonia. Patient will be sent home with home oxygen. Upon reevaluation patient symptoms improved with complete resolution of headache. Additionally clarified that there is no positional component making post LP complication significantly less likely. Results of ED evaluation, follow-up plan, prescriptions, and return precautions given to the patient. Patient verbalized understanding and felt safe for discharge. Nithin Fairchild MD Emergency Medicine Lab Data: Labs: Lab Results 10/22/20 10/22/20 10/22/20 Range/Units 05:15 05:15 05:15 WBC 8.6 (4.0-10.0) 10^3/ uL RBC 4.42 (4.1-5.3) 10^6/u L Hgb 13.0 (11.5-15.3) g/dL Hct 40.3 (37.0-47.0) % MCV 91.2 (81-99) fl MCH 29.4 (28.0-34.0) pg MCHC 32.3 (30.0-36.0) g/dL RDW 13.2 (12.1-15.1) % Plt Count 174 (130-400) 10^3/c mm MPV 9.3 (7.4-10.4) fL Neut % (Auto) 81.7 % Lymph % (Auto) 14.0 % [place] % (Auto) 3.7 % Eos % (Auto) 0.0 % Baso % (Auto) 0.3 % Neut # (Auto) 7.01 (1.8-7.7) 10^3/u L Lymph # (Auto) 1.2 (0.8-4.8) 10^3/u L [place] # (Auto) 0.3 (0.2-0.9) 10^3/u L Eos # (Auto) 0.0 (0.0-0.8) 10^3/u L Baso # (Auto) 0.0 (0.0-0.1) 10^3/u L Nucleated RBC % (a uto) 0 % Nucleated RBCs # 0.0 /100WBC ESR (0-15) mm/hr D-Dimer (0-0.59) ug/mIFE U Sodium 134 L (136-145) mmol/L Potassium 3.6 (3.5-5.1) mmol/L Chloride 97 L (98-107) mmol/L Carbon Dioxide 25 (22-29) mmol/L Anion Gap 15.6 (5-19) BUN 16 (8-23) mg/dL Creatinine 0.8 (0.5-0.9) mg/dL GFR Calculation Not Reportable Glucose 104 (65-115) mg/dL Calculated Osmolal ity 279 L (285-295) mOsm/k g Lactic Acid 0.9 (0.5-2.2) mmol/L Calcium 8.6 (8.5-10.5) mg/dL Total Bilirubin 0.2 (0.15-1.2) mg/dL AST 29 (0-32) U/L ALT 21 (0-33) U/L Alkaline Phosphata se 99 (35-105) IU/L C-Reactive Protein 101.4 H (0.0-4.9) mg/L NT-Pro-B Natriuret Pep (0-450) pg/mL Total Protein 6.3 L (6.6-8.7) g/dL Albumin 3.5 (3.5-5.2) g/dL Globulin 2.8 (1.3-4.6) g/dL Procalcitonin (0-0.5) ng/mL 10/22/20 10/22/20 10/22/20 Range/Units 05:15 05:15 05:15 WBC (4.0-10.0) 10^3/ uL RBC (4.1-5.3) 10^6/u L Hgb (11.5-15.3) g/dL Hct (37.0-47.0) % MCV (81-99) fl MCH (28.0-34.0) pg MCHC (30.0-36.0) g/dL RDW (12.1-15.1) % Plt Count (130-400) 10^3/c mm MPV (7.4-10.4) fL Neut % (Auto) % Lymph % (Auto) % [place] % (Auto) % Eos % (Auto) % Baso % (Auto) % Neut # (Auto) (1.8-7.7) 10^3/u L Lymph # (Auto) (0.8-4.8) 10^3/u L [place] # (Auto) (0.2-0.9) 10^3/u L Eos # (Auto) (0.0-0.8) 10^3/u L Baso # (Auto) (0.0-0.1) 10^3/u L Nucleated RBC % (a uto) % Nucleated RBCs # /100WBC ESR 31 H (0-15) mm/hr D-Dimer 0.64 H (0-0.59) ug/mIFE U Sodium (136-145) mmol/L Potassium (3.5-5.1) mmol/L Chloride (98-107) mmol/L Carbon Dioxide (22-29) mmol/L Anion Gap (5-19) BUN (8-23) mg/dL Creatinine (0.5-0.9) mg/dL GFR Calculation Glucose (65-115) mg/dL Calculated Osmolal ity (285-295) mOsm/k g Lactic Acid (0.5-2.2) mmol/L Calcium (8.5-10.5) mg/dL Total Bilirubin (0.15-1.2) mg/dL AST (0-32) U/L ALT (0-33) U/L Alkaline Phosphata se (35-105) IU/L C-Reactive Protein (0.0-4.9) mg/L NT-Pro-B Natriuret Pep 543 H (0-450) pg/mL Total Protein (6.6-8.7) g/dL Albumin (3.5-5.2) g/dL Globulin (1.3-4.6) g/dL Procalcitonin 0.39 (0-0.5) ng/mL EKG Data: EKG 1: Attestation: I personally reviewed and interpreted this EKG as follows: EKG interpretation date: 10/22/20 EKG interpretation time: 06:07 Prior EKG tracings: not available for review Interpretation: Twelve-lead EKG she is in a regular sinus rhythm at a rate of 75. VA interval 190, QRS duration 84, QTc 436. Normal axis. Interpretation: Sinus rhythm. PVCs. COVID Results: SARS-CoV-2 Antigen (Rapid) Positive (Negative) H 10/20/20 16:09 10/20/20 Discharge Plan Discharge Patient Disposition: Home Clinical Impression: Headache, COVID-19 Condition: Stable Prescriptions: New oxycodone 5 mg tablet 5 mg PO Q8H PRN (Reason: pain) Qty: 7 RF: 0 No Action atorvastatin 40 mg tablet 40 mg PO DAILY RF: 0 nitrofurantoin monohyd/m-cryst 100 mg capsule 100 mg PO BID PRN (Reason: bladder infection) RF: 0 Percocet 5-325 mg tablet 1 tab PO Q8H Qty: 7 RF: 0 aspirin 81 mg tablet,delayed release (DR/EC) 81 mg PO DAILY RF: 0 levothyroxine 112 mcg tablet 112 mcg PO DAILY RF: 0 Restasis 0.05 % Dropperette 1 drp OPHTHALMIC (EYE) Q12H RF: 0 Discharge Orders: Discharge ED (Routine); Ordered 10/22/20 Ordered By: Nithin Fairchild Other Ambulatory Orders: DME: Oxygen (Order) Location: None Selected Ordered By: Nithin Fairchild Referrals: Lauren Carrasco MD [Primary Care Provider] - Discharge Diet: Usual diet Discharge Activity: Resume usual activity Patient Instructions: Viral Pneumonia (ED), Acute Headache (ED), Opioid Safety Activity Restrictions/Additional Instructions: Thank you for visiting the emergency department. You were seen and evaluated for headache. This is most likely related to your COVID-19 infection. You may use [id number] medications for your symptoms however please do not exceed the daily recommended dosage and please keep in mind that many namebrand medications contain the same active ingredients. Your viral cultures from your prior lumbar puncture are still pending. Please follow-up with your primary care provider. An incidental finding was that your BNP was mildly elevated. You may require further outpatient testing once your COVID-19 symptoms resolved. This can be arranged by your primary care provider. Please return to the emergency department if you experience worsening of your symptoms, new numbness, tingling, weakness, worsening shortness of breath, chest pain, or anything else that you are concerned about and feel needs emergency department evaluation. Sign Out Sign Out Data: Patient Sign Out occurred on 10/22/20 at 05:54. Patient's care was discussed, and care was transferred from to Nithin Fairchild MD. Coding Level of Care Code ED Furniture Mover Driver for Patrick Fwjamie Exam Comprehensive
[2020-10-22] MEDS: acetaminophen 325 mg Tablet 650 MG PO (05:35)
[2020-10-22] MEDS: ondansetron 2 mg/ML SDV 2 mL 4 MG IVP (05:36)
[2020-10-22] MEDS: diphenhydrAMINE 50 mg/mL SDV 1mL 25 MG IVP (05:36)
[2020-10-22] MEDS: morphine 4 mg/mL SDV 1 mL IVP (05:36)
[2020-10-22] MEDS: metoclopramide 5 mg/mL SDV 2 mL IVP (05:36)
[2020-10-22 05:39] LABS: Basophils % 0.3 %; Hematocrit 40.3 % (37.0-47.0); Lymphocytes # 1.2 10^3/uL (0.8-4.8); Mean Corpuscular HGB Conc 32.3 g/dL (30.0-36.0); Mean Corpuscular Hemoglobin 29.4 pg (28.0-34.0); Mean Corpuscular Volume 91.2 fl (81-99); Mean Platelet Volume 9.3 fL (7.4-10.4); Monocytes # 0.3 10^3/uL (0.2-0.9); Monocytes % 3.7 %; Neutrophils # 7.01 10^3/uL (1.8-7.7); Neutrophils % 81.7 %; Nucleated Red Blood Cells % 0 %; Platelet Count 174 10^3/cmm (130-400); Red Blood Count 4.42 10^6/uL (4.1-5.3); Red Cell Distribution Width 13.2 % (12.1-15.1); White Blood Count 8.6 10^3/uL (4.0-10.0)
[2020-10-22 05:59] LABS: Lactic Sepsis W/Reflex 0.9 mmol/L (0.5-2.2)
[2020-10-22 06:00] LABS: Alanine Aminotransferase 21 U/L (0-33); Albumin Level 3.5 g/dL (3.5-5.2); Alkaline Phosphatase 99 IU/L (35-105); Anion Gap 15.6 (5-19); Aspartate Amino Transferase 29 U/L (0-32); Blood Urea Nitrogen 16 mg/dL (8-23); C Reactive Protein 101.4 mg/L (0.0-4.9); Calcium 8.6 mg/dL (8.5-10.5); Carbon Dioxide 25 mmol/L (22-29); Chloride 97 mmol/L (98-107); Globulin 2.8 g/dL (1.3-4.6); Glucose 104 mg/dL (65-115); Osmolality Calculated 279 mOsm/kg (285-295); Potassium 3.6 mmol/L (3.5-5.1); Sodium 134 mmol/L (136-145); Total Bilirubin 0.2 mg/dL (0.15-1.2); Total Protein 6.3 g/dL (6.6-8.7)
[2020-10-22 06:32] LABS: Erythrocyte Sedimentation Rate 31 mm/hr (0-15)
[2020-10-22 06:41] LABS: NT Pro B Type Natriuretic Pept 543 pg/mL (0-450); Procalcitonin 0.39 ng/mL (0-0.5)
[2020-10-22 07:08] LABS: D Dimer 0.64 ug/mIFEU (0-0.59)
--- NOTE | 2020-10-22 07:09 | CTR_ITS ---
PROCEDURE INFORMATION: Exam: CTA Chest With Contrast Exam date and time: 10/22/2020 7:09 AM Age: 75 years old Clinical indication: Cough and shortness of breath; Additional info: Elevated ddimer, SOB, new o2, covid TECHNIQUE: Imaging protocol: Computed tomographic angiography of the chest with contrast. 3D rendering (Not supervised by radiologist): MIP and/or 3D reconstructed images were created by the technologist. Radiation optimization: All CT scans at this facility use at least one of these dose optimization techniques: automated exposure control; mA and/or kV adjustment per patient size (includes targeted exams where dose is matched to clinical indication); or iterative reconstruction. Contrast material: OMNI 350; Contrast volume: 95 ml; Contrast route: INTRAVENOUS (IV); COMPARISON: CR (CHEST, ) 10/22/2020 4:51 AM RADIATION DOSE METRICS: Total DLP (mGy-cm): 496.13 FINDINGS: Pulmonary arteries: Normal. No pulmonary emboli. Aorta: There is atherosclerotic calcification of the aorta. There is no thoracic aortic aneurysm or dissection. Lungs: There are few scattered benign calcified granulomas in the lungs. There are extensive bilateral interstitial pulmonary infiltrates which are probably due to an interstitial viral pneumonia. Pleural spaces: Unremarkable. No pneumothorax. No pleural effusion. Heart: The heart is not enlarged. There is calcification of the coronary arteries. Lymph nodes: There are multiple enlarged mediastinal lymph nodes that are probably reactive in nature. There are small benign calcified mediastinal lymph nodes. Bones/joints: Chronic degenerative changes are present in the spine with scattered sclerosis and osteophytes. Soft tissues: Unremarkable. CT/CT angio chest PE protcl [id number] IMPRESSION: 1. No evidence of pulmonary embolus or aortic aneurysm/dissection. 2. Extensive bilateral pulmonary infiltrates consistent with an interstitial viral pneumonia. Radiation Dose CTDIVOL = (mGy): DLP = 496.13 (mGy-cm)
--- NOTE | 2020-10-22 07:15 | PC.NURSE ---
This RN was getting report on patient at this time. Patient yelling out for help. Patient states that she needs to use the restroom. This RN assisted patient to the bedside commode. Patient reports that she could not find her call light. This RN gave patient her call light and educated to use the call light with any needs.
[2020-10-22] MEDS: iohexol 350 mg/mL 100 mL Btl IV (07:35)
== END 2020-10-22 10:25 | disposition home or self-care (01) ==
PROVIDERS: Emergency Medicine; Emergency Provider Emergency Medicine; PCP Family Medicine
DX: U07.1 COVID-19 (principal); R51.9 Headache, unspecified; Z79.82 Long term (current) use of aspirin
CPT/HCPCS: 71045; 71275; 80053; 83605; 83880; 84145; 85025; 85378; 85651; 86140; 87040; 93005; 96374; 96375; 99284; J1200; J2270; J2405; J2765; Q9967

== ENCOUNTER → 2020-12-26 13:37 | Outpatient (BNVA) | payer MEDICARE, OTHER, SELFPAY | PROVIDERS: PCP Clinical Nurse Specialist Adult Health; Visit Provider Nurse Practitioner Family | DX: N30.20 Other chronic cystitis without hematuria (principal) | CPT/HCPCS: 81003 ==

== ENCOUNTER → 2021-02-06 09:56 | Outpatient (BNVA) | payer MEDICARE, OTHER, SELFPAY | PROVIDERS: PCP Clinical Nurse Specialist Adult Health; Visit Provider Urology | DX: N30.20 Other chronic cystitis without hematuria (principal) | CPT/HCPCS: 81003 ==

== ENCOUNTER 2021-05-14 07:19 | Emergency (ER) | payer MEDICARE, OTHER, SELFPAY ==
[2021-05-14 07:26] VITALS: BP 159/104; PULSE 92; RESP 20; TEMP 36.8; O2SAT 96; BMI 27.4
[2021-05-14 07:32] VITALS: BP 159/104; PULSE 92; RESP 20; TEMP 36.8; O2SAT 96
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
[2021-05-14] MEDS: HYDROcodone-acetaminophen 7.5-325 mg Tablet 1 TAB PO (07:44)
--- NOTE | 2021-05-14 07:44 | XR_ITS ---
WS: [id number] LEFT HAND: 3 VIEW(S) TECHNIQUE: PA, oblique and lateral. HISTORY: dog bite injury to 5th digit COMPARISON: None available. There is an acute appearing fracture/dislocation involving the distal phalanx of the fifth finger. Th ere is an oblique fracture through the proximal portion of the distal phalanx with volar lateral disp lacement of the distal fracture and overlapping. Moderate amount soft tissue edema. 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 XR/XR hand LT min 3V* [id number] IMPRESSION: Acute fracture/dislocation with overlapping bone involving the distal phalanx f ifth finger.
[2021-05-14] MEDS: lidocaine 2% INJ 20 mL INJECTION (07:47)
[2021-05-14] MEDS: ceFAZolin 1,000 MG in sodium chloride 0.9% (plus) 50 ML 100 MG IV (08:26)
[2021-05-14 08:47] LABS: Basophils # 0.1 10^3/uL (0.0-0.1); Basophils % 1.3 %; Eosinophils # 0.1 10^3/uL (0.0-0.8); Eosinophils % 2.6 %; Hematocrit 44.6 % (37.0-47.0); Hemoglobin 14.2 g/dL (11.5-15.3); Lymphocytes # 1.9 10^3/uL (0.8-4.8); Lymphocytes % 34.1 %; Mean Corpuscular HGB Conc 31.8 g/dL (30.0-36.0); Mean Corpuscular Hemoglobin 29.7 pg (28.0-34.0); Mean Corpuscular Volume 93.3 fl (81-99); Mean Platelet Volume 9.5 fL (7.4-10.4); Monocytes # 0.6 10^3/uL (0.2-0.9); Monocytes % 10.3 %; Neutrophils # 2.81 10^3/uL (1.8-7.7); Neutrophils % 51.3 %; Nucleated Red Blood Cells % 0 %; Platelet Count 327 10^3/cmm (130-400); Red Blood Count 4.78 10^6/uL (4.1-5.3); Red Cell Distribution Width 12.8 % (12.1-15.1); White Blood Count 5.5 10^3/uL (4.0-10.0)
--- NOTE | 2021-05-14 09:03 | XR_ITS ---
WS: [id number] Exam: XR finger LT min 2V [id number] Date/Time of Exam: 05/14/2021 9:09 AM Reason For Exam: post reduction Comparison with the earlier study performed on the same day. Previously noted displaced fracture of t he base of the distal phalanx of the left fifth finger has been reduced. There is still some of volar displacement of the phalangeal shaft in relationship to the fractured base. Soft tissue swelling and deformity noted. XR/XR finger LT min 2V [id number] IMPRESSION: 1. Improved alignment of previously described displaced fracture of the distal phalanx of the fifth finger. There is still some volar displacement of the phal angeal shaft in relationship to the base of the distal phalanx.
[2021-05-14 09:08] LABS: Anion Gap 13.2 (5-19); Blood Urea Nitrogen 20 mg/dL (8-23); Calcium 9.2 mg/dL (8.5-10.5); Carbon Dioxide 24 mmol/L (22-29); Chloride 104 mmol/L (98-107); Glucose 115 mg/dL (65-115); Osmolality Calculated 288 mOsm/kg (285-295); Potassium 4.2 mmol/L (3.5-5.1); Sodium 137 mmol/L (136-145)
[2021-05-14 10:36] VITALS: BP 135/82; PULSE 88; RESP 18; O2SAT 96
--- NOTE | 2021-05-15 12:34 | DCPLANNER ---
Addendum entered by Kailey Garcia 05/16/21 14:22: Ortho clinic contacted case assistant stating that patient wanted to see a hand specialist in [place]. base manager called patient to see if patient needed or wanted case assistant to make a referral to the hand specialist. Patient stated that she has already taken care of everything. Original Note: base manager had message to schedule a follow up appointment for patient with ortho. base manager sent patients information to the ortho front staff thru workload messaging system. Patients information will be printed and reviewed. Clinic will call patient with appointment information.
== END 2021-05-14 10:38 | disposition home or self-care (01) ==
PROVIDERS: Emergency Provider Physician Assistant; PCP Clinical Nurse Specialist Adult Health
DX: S62.637B Displaced fracture of distal phalanx of left little finger, initial encounter for open fracture (principal); W54.0XXA Bitten by dog, initial encounter
CPT/HCPCS: 26755; 73130; 73140; 80048; 85025; 96365; 99284; J0690

== ENCOUNTER → 2021-09-15 14:24 | Outpatient (BNVA) | payer MEDICARE, OTHER, SELFPAY | PROVIDERS: Visit Provider Nurse Practitioner Family | DX: N30.20 Other chronic cystitis without hematuria (principal) | CPT/HCPCS: 81003; 87086; 99213 ==

== ENCOUNTER → 2021-10-02 10:14 | Outpatient (BNVA) | payer MEDICARE, OTHER, SELFPAY | PROVIDERS: Visit Provider Clinical Nurse Specialist Adult Health | DX: E78.5 Hyperlipidemia, unspecified (principal); E03.9 Hypothyroidism, unspecified | CPT/HCPCS: 80053; 80061; 84436; 84443; 84481 ==

== ENCOUNTER → 2021-12-16 13:25 | Outpatient (BNVA) | payer MEDICARE, OTHER, SELFPAY | PROVIDERS: Visit Provider Urology | DX: N30.20 Other chronic cystitis without hematuria (principal) | CPT/HCPCS: 81003; 99213 ==

== ENCOUNTER 2021-12-31 12:22 | Outpatient (CLI) | payer MEDICARE, OTHER, SELFPAY ==
--- NOTE | 2021-12-31 12:32 | XR_ITS ---
WS: [id number] Exam: XR chest 2V* [id number] Date/Time of Exam: 12/31/2021 12:32 PM Reason For Exam: cough Comparison 10/22/2020. The lungs are fully expanded. No infiltrates are noted. Normal cardiomediastinal silhouette. Bilatera l calcified pleural plaques noted. No pleural effusions. Mild dextroscoliosis of the lower thoracic a nd upper lumbar spine. Increased thoracic kyphosis and spondylosis. XR/XR chest 2V* [id number] IMPRESSION: 1. No acute cardiopulmonary finding. 2. Scattered calcified pleural plaques and calcified granulomas noted bilateral ly.
== END 2021-12-31 12:23 | disposition home or self-care (01) ==
LOC: RAD 12:27
PROVIDERS: PCP Clinical Nurse Specialist Adult Health; Visit Provider Clinical Nurse Specialist Adult Health
DX: R05.3 Chronic cough (principal); J92.9 Pleural plaque without asbestos
CPT/HCPCS: 71046

== ENCOUNTER 2022-03-31 10:01 | Outpatient (CLI) | payer MEDICARE, OTHER, SELFPAY | END 2022-03-31 10:02 | disposition home or self-care (01) | LOC: RT 10:03 | PROVIDERS: PCP Clinical Nurse Specialist Adult Health; Visit Provider Clinical Nurse Specialist Adult Health | DX: R05.3 Chronic cough (principal) | CPT/HCPCS: 94010; 94726; 94729 ==

== ENCOUNTER → 2022-06-25 08:50 | Outpatient (BNVA) | payer MEDICARE, OTHER, SELFPAY | PROVIDERS: PCP Clinical Nurse Specialist Adult Health; Visit Provider Urology | DX: N30.20 Other chronic cystitis without hematuria (principal); N39.46 Mixed incontinence | CPT/HCPCS: 81003; 99213 ==

== ENCOUNTER → 2022-08-06 09:02 | Outpatient (BNVA) | payer MEDICARE, OTHER, SELFPAY | PROVIDERS: PCP Clinical Nurse Specialist Adult Health; Visit Provider Urology | DX: N30.20 Other chronic cystitis without hematuria (principal) | CPT/HCPCS: 81003; 99213 ==

== ENCOUNTER → 2022-12-28 11:37 | Outpatient (BNVA) | payer MEDICARE, OTHER, SELFPAY | PROVIDERS: PCP Clinical Nurse Specialist Adult Health; Visit Provider Clinical Nurse Specialist Adult Health | DX: E03.9 Hypothyroidism, unspecified (principal); E78.5 Hyperlipidemia, unspecified | CPT/HCPCS: 80053; 80061; 84443; 85025 ==

== ENCOUNTER → 2023-06-21 10:49 | Outpatient (BNVA) | payer MEDICARE, OTHER, SELFPAY | PROVIDERS: PCP Clinical Nurse Specialist Adult Health; Visit Provider Clinical Nurse Specialist Adult Health | DX: E03.9 Hypothyroidism, unspecified (principal) | CPT/HCPCS: 84443 ==